=== PATIENT | female | born 1990 | race Caucasian/White ===

== ENCOUNTER 2017-05-10 10:58 | Emergency (ER) | payer SELFPAY ==
[~2017-05-10] VITALS: Ht 160 cm; Wt 95.3 kg
[~2017-05-10 10:58] MED LIST: CPR500T PO; FAMO-119 PO; HYDR-3714 PO; HYDR-700 PO; MTR500T PO; ONDA4TAB8 PO; ONDA8TAB13 PO; PROM25TA14 PO; SULF-222 PO; TRAM-21 PO
[2017-05-10] MEDS ORDERED: HYDROcodone/APAP 7.5 MG/325 MG (LORTAB, LORCET PLUS) TABLET PO STA (13:03)
[2017-05-10] MEDS ORDERED: ORPHENADRINE 60 MG/2 ML (NORFLEX) AMP IM STA (13:03)
[2017-05-10] MEDS ORDERED: KETOROLAC 60 MG/2 ML VIAL IM STA (13:03)
--- NOTE | 2017-05-10 13:04 | ED Neck-Back Pain/Injury ---
General Chief Complaint: Head/Cervical Problems Stated Complaint: BACK OF HEAD PRESSURE/NECK AND BACK PAIN Nursing Triage Note: PT C/O NECK AND UPPER BACK PAIN AND POSTERIOR HEAD PRESSURE WITH WORSENING OVER THE LAST WEEK. SHE DENIES ANY INJURY. SHE STATES APPROX 1 WEEK AGO SHE "POPPED" HER NECK AND SHE HAS HAD THIS PAIN EVER SINCE. Nursing Sepsis Screen: No Definite Risk Source of Information: Patient Exam Limitations: No Limitations History of Present Illness Time Seen by Provider: 12:50 Initial Comments Here with report of bilateral neck pain with pain radiating from the base of the skull down the shoulders bilaterally. Onset one week ago. Over-the- counter medicines aren't helping. Denies fever or chills. Denies vomiting Timing/Duration: 1 Week Severity: Moderate Pain/Injury Location: Neck Modifying Factors: Worse With Movement, Improves With Pain Medication Associated Symptoms: muscle spasms, No weakness, No numbness in legs/feet, No tingling in legs/feet, No sensory/motor loss, No lower back pain Allergies and Home Medications Allergies Coded Allergies: Penicillins (Verified Allergy, Unknown, 04/19/14) talc (Verified Allergy, Unknown, 04/19/14) Home Medications Famotidine 20 Mg Tablet, 20 MG PO BID, #20 Ref 0 Prescribed by: SHANELL JOHNSON on 04/11/16 1658 Ondansetron 8 Mg Tab.rapdis, 8 MG PO Q6H PRN for NAUSEA, #10 Ref 0 Prescribed by: SHANELL JOHNSON on 04/11/16 1658 Promethazine HCl 25 Mg Tablet, 25 MG PO Q6H PRN for NAUSEA/VOMITING, #14 Ref 0 Prescribed by: SHANELL JOHNSON on 04/11/16 1658 Constitutional: see HPI, No chills, No fever Respiratory: no symptoms reported Cardiovascular: no symptoms reported Musculoskeletal: see HPI, muscle pain, muscle cramps, neck pain Psychiatric/Neurological: No Symptoms Reported Past Bkgqiwq-Zjxltx-Wseswl Hx Patient Social History Alcohol Use: Denies Use Recreational Drug Use: Yes Drug of Choice: MARIJUANA Smoking Status: Current Everyday Smoker Type Used: Cigarettes 2nd Hand Smoke Exposure: Yes Recent Foreign Travel: No Contact w/Someone Who Travel: No Recent Infectious Disease Expo: No Recent Hopitalizations: No Immunizations Up To Date Tetanus Booster (TDap): Less than 5yrs Seasonal Allergies Seasonal Allergies: Yes Surgeries HX Surgeries: Yes (r ankle) Surgeries: Orthopedic Respiratory Hx Respiratory Disorders: Yes Respiratory Disorders: Asthma Cardiovascular Hx Cardiac Disorders: No Neurological Hx Neurological Disorders: No Reproductive System Hx Reproductive Disorders: Yes (PCOS) Female Reproductive Disorders: Denies, Polycystic Ovarian Dis Genitourinary Hx Genitourinary Disorders: No Gastrointestinal Hx Gastrointestinal Disorders: No Musculoskeletal Hx Musculoskeletal Disorders: No Endocrine Hx Endocrine Disorders: No HEENT HX ENT Disorders: No Cancer Hx Cancer: No Psychosocial Hx Psychiatric Problems: Yes Behavioral Health Disorders: Anxiety Integumentary HX Skin/Integumentary Disorder: Yes Skin/Integumentary Disorders: Psoriasis Blood Transfusions Hx Blood Disorders: No Reviewed Nursing Assessment Reviewed/Agree w Nursing PMH: Yes Family Medical History Significant Family History: No Pertinent Family Hx Physical Exam Vital Signs Vital Sign - Last 12Hours 05/10/17 11:50 Temp 97.9 Pulse 76 Resp 20 B/P (MAP) 145/101 Pulse Ox 97 O2 Delivery Room Air Capillary Refill : Less Than 3 Seconds General Appearance: No Apparent Distress, WD/WN Neck: Limited Range of Motion (pain to the lateral aspect of the muscles.), Tender Lateral (bilaterally), Other (pain at the bases: Bilateral neck muscle insertion points.) Cardiovascular: Regular Rate, Rhythm, No Murmur Respiratory: Lungs Clear, Normal Breath Sounds Gastrointestinal: Non Tender, Soft Back: Normal Inspection, No CVA Tenderness, No Vertebral Tenderness Neurologic/Psychiatric: Alert, Oriented x3 Skin: Normal Color, Warm/Dry Progress/Results/Core Measures Results/Orders My Orders Orders - DONNA WELCH MD Hydrocodone/Apap 7.5/325 Tab (Lortab 7. (05/10/17 13:03) Ketorolac Injection (Toradol Injection) (05/10/17 13:03) Orphenadrine Injection (Norflex Injectio (05/10/17 13:03) Vital Signs/I&O Vital Sign - Last 12Hours 05/10/17 11:50 Temp 97.9 Pulse 76 Resp 20 B/P (MAP) 145/101 Pulse Ox 97 O2 Delivery Room Air Blood Pressure Mean: 116 Progress Note : Progress Note Seen and evaluated. Toradol 60 mg IM, Norflex 60 mg IM and hydrocodone 7.5 mg by mouth given. Discharged home with return precautions. Patient verbalize understanding instructions and agreement with plan. Departure Impression Impression: Primary Impression: Neck sprain Qualified Codes: S13.9XXA - Sprain of joints and ligaments of unspecified parts of neck, initial encounter Additional Impression: Tension type headache Qualified Codes: G44.209 - Tension-type headache, unspecified, not intractable Disposition: 01 HOME, SELF-CARE Condition: Improved Departure-Patient Inst. Decision time for Depature: 13:41 Referrals: NO,LOCAL PHYSICIAN (PCP/Family) Primary Care Physician Patient Instructions: Tension Headache (DC), Cervical Muscle Strain (DC) Add. Discharge Instructions: All discharge instructions reviewed with patient and/or family. Voiced understanding. You may take ibuprofen 800 mg every 8 hours as needed for pain. Take other medications as prescribed. Drink plenty of fluids. Follow-up with your Dr. in a few days for recheck. Return for worse pain, fever, vomiting, weakness, breathing problems or other concerns as needed. Scripts Hydrocodone/Acetaminophen (Hydrocodon -Acetaminophen 5-325) 1 Each Tablet 1-2 EACH PO Q6H Y for PAIN-MODERATE, #10 TAB 0 Refills Prov: DONNA WELCH MD 05/10/17 Cyclobenzaprine HCl (Cyclobenzaprine HCl) 10 Mg Tablet 10 MG PO Q8H Y for SPASMS, #15 TAB 0 Refills Prov: DONNA WELCH MD 05/10/17 DONNA WELCH MD May 10, 2017 13:04
[2017-05-10] MEDS ORDERED: CYCL10TA9 PO (13:43)
[2017-05-10] MEDS ORDERED: HYDR-3812 PO (13:43)
[2017-05-10 13:49] VITALS: BP 145/101
== END 2017-05-10 13:49 | disposition home or self-care (01) ==
LOC: EDUNIT# 10:58 → ER 11:00
DX: S13.9XXA Sprain of joints and ligaments of unspecified parts of neck, initial encounter (principal); G44.209 Tension-type headache, unspecified, not intractable; J45.909 Unspecified asthma, uncomplicated; F41.9 Anxiety disorder, unspecified; F12.10 Cannabis abuse, uncomplicated; F17.210 Nicotine dependence, cigarettes, uncomplicated; X50.0XXA Overexertion from strenuous movement or load, initial encounter
CPT/HCPCS: 96372; 99282; 99284

== ENCOUNTER 2017-11-05 08:04 | Emergency (ER) | payer SELFPAY ==
[~2017-11-05] VITALS: Ht 162.6 cm; Wt 90.7 kg
[~2017-11-05 08:04] MED LIST changes: +ACHD5005 PO; +CYCL10TA9 PO
--- NOTE | 2017-11-05 09:36 | ED Cough/URI ---
General Chief Complaint: Cough/Cold/Flu Symptoms Stated Complaint: FLU LIKE SYMPTOMS,COUGH Nursing Triage Note: pt states cough/congestion since first september. has not seen anyone prior to today fro s/s or taken medications. Source: patient Exam Limitations: no limitations History of Present Illness Date Seen by Provider: Nov 05, 2017 Time Seen by Provider: 09:33 Initial Comments The patient is a 27-year-old white female who presents with a complaint of cough , body aches, hoarseness and sore throat. She reports that these complaints began on and have continued. There are days when she has a minimum of symptoms only to seem to relapse. For the past several days she has had hoarseness and an extremely sore throat. Symptoms have been great enough that she has not smoked this week. Severity/Quality: dry cough Allergies and Home Medications Allergies Coded Allergies: Penicillins (Verified Allergy, Unknown, 04/19/14) talc (Verified Allergy, Unknown, 04/19/14) Home Medications Cyclobenzaprine HCl 10 Mg Tablet, 10 MG PO Q8H PRN for SPASMS, #15 Ref 0 Prescribed by: DONNA WELCH on 05/10/17 1343 Famotidine 20 Mg Tablet, 20 MG PO BID, #20 Ref 0 Prescribed by: SHANELL JOHNSON on 04/11/16 1658 Hydrocodone Bit/Acetaminophen 1 Each Tablet, 1-2 EACH PO Q6H PRN for PAIN- MODERATE, #10 Ref 0 Prescribed by: DONNA WELCH on 05/10/17 1343 Ondansetron 8 Mg Tab.rapdis, 8 MG PO Q6H PRN for NAUSEA, #10 Ref 0 Prescribed by: SHANELL JOHNSON on 04/11/16 1658 Promethazine HCl 25 Mg Tablet, 25 MG PO Q6H PRN for NAUSEA/VOMITING, #14 Ref 0 Prescribed by: SHANELL JOHNSON on 04/11/16 1658 Constitutional: see HPI EENTM: throat pain, throat swelling Respiratory: cough, dyspnea on exertion Cardiovascular: no symptoms reported Gastrointestinal: no symptoms reported Genitourinary: no symptoms reported Musculoskeletal: muscle pain Skin: no symptoms reported Psychiatric/Neurological: No Symptoms Reported Hematologic/Lymphatic: No Symptoms Reported Past Jdddmlf-Qcwpwo-Zkyzov Hx Patient Social History Alcohol Use: Denies Use Recreational Drug Use: Yes Drug of Choice: MARIJUANA Smoking Status: Current Everyday Smoker Type Used: Cigarettes 2nd Hand Smoke Exposure: Yes Recent Foreign Travel: No Contact w/Someone Who Travel: No Recent Infectious Disease Expo: No Recent Hopitalizations: No Physical Abuse: No Sexual Abuse: No Mistreated: No Fear: No Immunizations Up To Date Tetanus Booster (TDap): Less than 5yrs Seasonal Allergies Seasonal Allergies: Yes Surgeries History of Surgeries: Yes (r ankle) Surgeries: Orthopedic Respiratory History of Respiratory Disorde: Yes Respiratory Disorders: Asthma Cardiovascular History of Cardiac Disorders: No Neurological History of Neurological Disord: No Reproductive System Hx Reproductive Disorders: Yes (PCOS) Female Reproductive Disorders: Denies, Polycystic Ovarian Dis Gastrointestinal History of Gastrointestinal Di: No Musculoskeletal History of Musculoskeletal Dis: No Endocrine History of Endocrine Disorders: No Cancer History of Cancer: No Psychosocial History of Psychiatric Problem: Yes Behavioral Health Disorders: Anxiety Suicide Risk Score: 0 Integumentary History of Skin or Integumenta: Yes Skin/Integumentary Disorders: Psoriasis Blood Transfusions History of Blood Disorders: No Family Medical History Significant Family History: No Pertinent Family Hx Physical Exam Vital Signs Vital Signs - First Documented 11/05/17 08:20 Temp 96.7 Pulse 88 Resp 20 B/P (MAP) 146/99 (115) Capillary Refill : Less Than 3 Seconds General Appearance: mild distress Eyes: Bilateral Eye Normal Inspection HEENT: normal ENT inspection, pharynx normal Neck: non-tender, full range of motion, supple, normal inspection Respiratory: chest non-tender, lungs clear, normal breath sounds, no respiratory distress, no accessory muscle use, respiratory distress, other ( Harsh cough) Cardiovascular: normal peripheral pulses, regular rate, rhythm, no edema, no gallop, no JVD, no murmur Extremities: normal range of motion, non-tender, normal inspection, no pedal edema, no calf tenderness, normal capillary refill, pelvis stable Neurologic/Psychiatric: 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, no motor/sensory deficits, alert, normal mood/affect, oriented x 3 Skin: normal color, warm/dry Lymphatic: no adenopathy Progress/Results/Core Measures Suspected Sepsis Recent Fever Within 48 Hours: No Infection Criteria Present: Suspected New Infection New/Unexplained Altered Menta: No Sepsis Screen: No Definite Risk Sepsis Diagnosis: SIRS Temperature:96.7 Pulse: 88 Respiratory Rate: 20 Laboratory Tests 11/05/17 09:33: White Blood Count 9.8 Blood Pressure 146 /99 Mean: 115 Laboratory Tests 11/05/17 09:33: Platelet Count 207 Results/Orders Lab Results Laboratory Tests Test 11/05/17 09:33 11/05/17 09:42 Range/Units White Blood Count 9.8 4.3-11.0 10^3/uL Red Blood Count 4.80 4.35-5.85 10^6/uL Hemoglobin 15.2 11.5-16.0 G/DL Hematocrit 44 35-52 % Mean Corpuscular Volume 91 80-99 FL Mean Corpuscular Hemoglobin 32 25-34 PG Mean Corpuscular Hemoglobin Concent 35 32-36 G/DL Red Cell Distribution Width 12.7 10.0-14.5 % Platelet Count 207 130-400 10^3/uL Mean Platelet Volume 10.3 7.4-10.4 FL Neutrophils (%) (Auto) 74 42-75 % Lymphocytes (%) (Auto) 11 L 12-44 % Monocytes (%) (Auto) 12 0-12 % Eosinophils (%) (Auto) 3 0-10 % Basophils (%) (Auto) 0 0-10 % Neutrophils # (Auto) 7.2 1.8-7.8 X 10^3 Lymphocytes # (Auto) 1.1 1.0-4.0 X 10^3 Monocytes # (Auto) 1.2 H 0.0-1.0 X 10^3 Eosinophils # (Auto) 0.3 0.0-0.3 10^3/uL Basophils # (Auto) 0.0 0.0-0.1 10^3/uL Group A Streptococcus Screen NEGATIVE NEGATIVE Micro Results Microbiology 11/05/17 Influenza Types A,B Antigen (YESENIA) - Final, Complete My Orders Orders - GABY MILLS MD Cbc With Automated Diff (11/05/17 08:32) Influenza A And B Antigens (11/05/17 08:32) Rapid Strep A Screen (11/05/17 09:41) Vital Signs/I&O Vital Sign - Last 12Hours 11/05/17 08:20 Temp 96.7 Pulse 88 Resp 20 B/P (MAP) 146/99 (115) Capillary Refill : Less Than 3 Seconds Blood Pressure Mean: 115 Departure Communication (Admissions) Progress Notes Labs shows her to be strep negative, influenza a positive. Impression Impression: Primary Impression: influenza A Disposition: HOME, SELF-CARE Condition: Stable/Unchanged Departure-Patient Inst. Decision time for Depature: 10:28 Referrals: NO,LOCAL PHYSICIAN (PCP) Primary Care Physician Patient Instructions: Flu, Adult (DC) Add. Discharge Instructions: All discharge instructions reviewed with patient and/or family. Voiced understanding. Lots of liquids. Throat lozenges will be useful. BLESSEDLY YOU should be coming to the end of your illness. GABY MILLS MD Nov 05, 2017 09:36
[2017-11-05 09:40] LABS: BASOPHILS % (AUTO) 0 % (0-10); EOSINOPHILS # (AUTO) 0.3 10^3/uL (0.0-0.3); EOSINOPHILS % (AUTO) 3 % (0-10); HEMATOCRIT 44 % (35-52); HEMOGLOBIN 15.2 G/DL (11.5-16.0); LYMPHOCYTES # (AUTO) 1.1 X 10^3 (1.0-4.0); LYMPHOCYTES % (AUTO) 11 % (12-44); MEAN CORPUSCULAR HEMOGLOBIN 32 PG (25-34); MEAN CORPUSCULAR HGB CONC 35 G/DL (32-36); MEAN CORPUSCULAR VOLUME 91 FL (80-99); MEAN PLATELET VOLUME 10.3 FL (7.4-10.4); MONOCYTES # (AUTO) 1.2 X 10^3 (0.0-1.0); MONOCYTES % (AUTO) 12 % (0-12); NEUTROPHILS # (AUTO) 7.2 X 10^3 (1.8-7.8); NEUTROPHILS % (AUTO) 74 % (42-75); PLATELET COUNT 207 10^3/uL (130-400); RED CELL DISTRIBUTION WIDTH 12.7 % (10.0-14.5); WHITE BLOOD COUNT 9.8 10^3/uL (4.3-11.0)
[2017-11-05 10:42] VITALS: BP 146/99
== END 2017-11-05 10:42 | disposition home or self-care (01) ==
LOC: EDUNIT# 08:04 → ER 08:05
DX: J10.1 Influenza due to other identified influenza virus with other respiratory manifestations (principal); J45.909 Unspecified asthma, uncomplicated; F41.9 Anxiety disorder, unspecified; F12.10 Cannabis abuse, uncomplicated; F17.210 Nicotine dependence, cigarettes, uncomplicated; Z88.0 Allergy status to penicillin; Z88.3 Allergy status to other anti-infective agents; Z87.448 Personal history of other diseases of urinary system
CPT/HCPCS: 36415; 85025; 87430; 87804; 99282

== ENCOUNTER 2018-01-12 08:14 | Emergency (ER) | payer SELFPAY ==
[~2018-01-12] VITALS: Ht 165.1 cm; Wt 90.7 kg
[2018-01-12] MEDS ORDERED: VIT (08:50)
[2018-01-12] MEDS ORDERED: KETOROLAC 30 MG/ML VIAL IM ONE (09:15)
--- NOTE | 2018-01-12 10:26 | Diagnostic Imaging Report ---
PROCEDURE: US right lower extremity venous. TECHNIQUE: Multiple real-time grayscale images were obtained over the right lower extremity in various projections. Additional duplex Doppler and color Doppler images were also obtained. INDICATION: Right leg pain. COMPARISON: None. FINDINGS: The right common femoral vein, femoral vein, deep femoral vein, and popliteal vein are normal in appearance. These vessels show normal compressibility, color flow and doppler augmentation. The visualized deep calf veins demonstrate no distinct intraluminal thrombus. IMPRESSION: 1. No sonographic evidence of deep venous thrombosis in the right lower extremity. Dictated by: Dictated on workstation # [id number]
--- NOTE | 2018-01-12 11:38 | ED Fall/Injury ---
General Chief Complaint: Lower Extremity Stated Complaint: FELL ON RIGHT KNEE Nursing Triage Note: TO ROOM REPORTS TRIPPED AND FELL OVER CURVE YESTERDAY. PAIN IN R KNEE WITH ABRASION Source: patient Exam Limitations: no limitations History of Present Illness Date Seen by Provider: Jan 12, 2018 Time Seen by Provider: 08:58 Initial Comments This 27-year-old woman presents to the emergency room with injury to the right knee after having a fall at a local convenience store. The injury happened last night. She struck her knee on the concrete and has mild abrasions, swelling, and bruising to the knee and gonzalez. She also complains of pain in the posterior calf with extension of the foot. She is ambulatory and able to bear weight. She complains of significant pain in the gonzalez with plantar flexion of the foot. She has been taking only Tylenol for the pain because ibuprofen causes acid reflux for her. Allergies and Home Medications Allergies Coded Allergies: Penicillins (Verified Allergy, Unknown, 04/19/14) talc (Verified Allergy, Unknown, 04/19/14) Patient Home Medication List Home Medication List Reviewed: Yes Review of Systems Constitutional: no symptoms reported Eyes: No Symptoms Reported Ears, Nose, Mouth, Throat: no symptoms reported Respiratory: no symptoms reported Cardiovascular: no symptoms reported Gastrointestinal: no symptoms reported Genitourinary: no symptoms reported : No Musculoskeletal: see HPI Skin: see HPI Psychiatric/Neurological: No Symptoms Reported Past Ujlyrag-Dmnsss-Ihncxx Hx Patient Social History Alcohol Use: Denies Use Recreational Drug Use: Yes Drug of Choice: MARIJUANA Smoking Status: Current Everyday Smoker Type Used: Cigarettes 2nd Hand Smoke Exposure: Yes Recent Foreign Travel: No Contact w/Someone Who Travel: No Recent Infectious Disease Expo: No Recent Hopitalizations: No Immunizations Up To Date Tetanus Booster (TDap): Less than 5yrs Seasonal Allergies Seasonal Allergies: Yes Past Medical History Surgeries: Yes (r ankle) Orthopedic Respiratory: Yes Asthma Cardiac: No Neurological: No Reproductive Disorders: Yes (PCOS) Female Reproductive Disorders: Denies, Polycystic Ovarian Dis Genitourinary: No Gastrointestinal: No Musculoskeletal: No Endocrine: No Cancer: No Psychosocial: Yes Anxiety Integumentary: Yes Psoriasis Blood Disorders: No Family Medical History No Pertinent Family Hx Physical Exam Vital Signs Vital Signs - First Documented 01/12/18 01/12/18 08:32 11:41 Temp 97.6 Pulse 76 Resp 18 B/P (MAP) 125/92 (103) Pulse Ox 98 Capillary Refill : Less Than 3 Seconds General Appearance: WD/WN, mild distress HEENT: normal ENT inspection Respiratory: normal breath sounds, no respiratory distress Extremities: other (right knee demonstrates edema and ecchymosis. Affected areas are tender to the touch. Posterior Is also tender to the touch. She also complains of tenderness over the proximal anterior gonzalez. Range of motion is intact. 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 nml as tested, no motor/sensory deficits, alert, normal mood/affect, oriented x 3 Skin: other (chronic skin changes on the lower extremities from psoriasis, abrasion and ecchymosis to the right knee) Progress/Results/Core Measures My Orders Orders - DORIS MERCER MD Ketorolac Injection (Toradol Injection) (01/12/18 09:15) Tibia/Fibula, Right, 2 Views (01/12/18 09:06) Knee, Right, 3 Views (01/12/18 09:06) Us Venous Lower Ext Rt (01/12/18 09:07) Medications Given in ED Current Medications Medications Dose Ordered Sig/Blaise Route Start Time Stop Time Status Last Admin Dose Admin Ketorolac Tromethamine 30 mg ONCE ONCE IM 01/12/18 09:15 01/12/18 09:16 DC 01/12/18 09:10 30 MG Vital Signs/I&O 01/12/18 01/12/18 08:32 11:41 Temp 97.6 Pulse 76 76 Resp 18 18 B/P (MAP) 125/92 (103) 125/92 (103) Pulse Ox 98 Blood Pressure Mean: 103 Progress Note : Progress Note Toradol was administered for pain control. X-rays revealed no acute injury. Ultrasound was performed due to the calf pain. No DVT was identified. Diagonstic Imaging: Ultrasound Plain Films/CT/US/NM/MRI: leg Comments NAME: FREDDIE BOCANEGRA Radha [facility] REC#: [id number] PT STATUS: REG ER : 1990 PHYSICIAN: DORIS MERCER MD ADMIT DATE: 01/12/18/ER Signed Date of Exam: 01/12/18 US VENOUS LOWER EXT RT PROCEDURE: US right lower extremity venous. TECHNIQUE: Multiple real-time grayscale images were obtained over the right lower extremity in various projections. Additional duplex Doppler and color Doppler images were also obtained. INDICATION: Right leg pain. COMPARISON: None. FINDINGS: The right common femoral vein, femoral vein, deep femoral vein, and popliteal vein are normal in appearance. These vessels show normal compressibility, color flow and doppler augmentation. The visualized deep calf veins demonstrate no distinct intraluminal thrombus. IMPRESSION: 1. No sonographic evidence of deep venous thrombosis in the right lower extremity. Dictated by: Dictated on workstation # [id number] Dict: 01/12/18 1021 Trans: 01/12/18 1107 Interpreted by: JESUS RAVI MD Electronically signed by: JESUS RAVI MD 01/12/18 1107 Reviewed: Reviewed by Me Diagonstic Imaging: Xray Plain Films/CT/US/NM/MRI: leg, knee Comments X-rays of the right knee and tib-fib were viewed by me and discussed with the radiologist. Reports were not available. No acute injuries were identified. Departure Impression Primary Impression: Fall on same level from tripping as cause of accidental injury Additional Impressions: Knee contusion Qualified Codes: S80.01XA - Contusion of right knee, initial encounter Leg pain Qualified Codes: M79.604 - Pain in right leg Disposition: 01 HOME, SELF-CARE Condition: Improved Departure-Patient Inst. Decision time for Depature: 11:20 Referrals: NO,LOCAL PHYSICIAN (PCP/Family) Primary Care Physician Patient Instructions: Contusion (DC) Add. Discharge Instructions: You may treat pain with rest, icing in 20 minute intervals, elevation, and compressive wrapping with an Bashir wrap if desired. You may take ibuprofen up to 600 mg every 6 hours as needed for pain. Add Tylenol (acetaminophen) up to 1000 mg every 6 hours as needed for additional pain relief. To prevent stomach upset with ibuprofen, take with food or milk and take an over -the-counter antacid such as omeprazole or famotidine while using ibuprofen. Discontinue use of ibuprofen if you still have notable stomach upset or acid reflux. If not improving as expected over the next couple of days, please follow-up with your primary care provider. Call your doctor or return to the emergency room if symptoms are worsening. All discharge instructions reviewed with patient and/or family. Voiced understanding. Work/School Note: Work Release Form Date Seen in the Emergency Department: Jan 12, 2018 Return to Work: Jan 13, 2018 Other Restrictions Listed Below: No lifting > 20 lbs, excessive bending, or other strenuous activity x 1 wk DORIS MERCER MD Jan 12, 2018 11:38
[2018-01-12 11:41] VITALS: BP 125/92
--- NOTE | 2018-01-14 16:46 | RADIOLOGY REPORT ---
Patient name: FREDDIE BOCANEGRA ACC: [id number] : 1990 Age:27 years Gender: Female ORD DR: DORIS MERCER MD Phone: ATT DR: DORIS MERCER MD Phone: Procedure: TIBIA/FIBULA, RIGHT, 2 VIEWS ORD Date: 01/12/2018 10:01 AM Reason for Study: CORRECTED Final Report INDICATION: Fall with bruising and lacerations of the right knee and anterior tibia, with pain radiating distal to the knee. TECHNIQUE: 2 views of the right tibia/fibula. COMPARISON: None FINDINGS: No acute fracture or dislocation is seen in the right knee or the right tibia/ fibula. Alignment appears normal. The joint spaces are generally preserved. No significant joint effusion is seen. Small densities are seen anterior to the tibial diaphysis and superior to the patella, thought to represent soft tissue calcifications. There is mild soft tissue edema anterior to the tibia. IMPRESSION: 1. No acute osseous abnormality is seen in the right knee or right tibia/fibula. 2. Small densities superior to the patella and anterior to the tibia are thought to be soft tissue calcifications, however given the history of lacerations, please correlate clinically to exclude foreign body or overlying debris. Dictated by: Created by: Shamir Donovan on 01/12/2018 10:03 AM Transcribed by: MIKIE 01/12/2018 10:10 AM SRIKANTH
--- NOTE | 2018-01-14 16:49 | RADIOLOGY REPORT ---
Patient name: FREDDIE BOCANEGRA ACC: [id number] : 1990 Age:27 years Gender: Female ORD DR: DORIS MERCER MD Phone: ATT DR: DORIS MERCER MD Phone: Procedure: KNEE, RIGHT, 3 VIEWS ORD Date: 01/12/2018 10:01 AM Reason for Study: CORRECTED Final Report INDICATION: Fall with bruising and lacerations of the right knee and anterior tibia, with pain radiating distal to the knee. TECHNIQUE: 3 views of the right knee. 2 views of the right tibia/fibula. COMPARISON: None FINDINGS: No acute fracture or dislocation is seen in the right knee or the right tibia/ fibula. Alignment appears normal. The joint spaces are generally preserved. No significant joint effusion is seen. Small densities are seen anterior to the tibial diaphysis and superior to the patella, thought to represent soft tissue calcifications. There is mild soft tissue edema anterior to the tibia. IMPRESSION: 1. No acute osseous abnormality is seen in the right knee or right tibia/fibula. 2. Small densities superior to the patella and anterior to the tibia are thought to be soft tissue calcifications, however given the history of lacerations, please correlate clinically to exclude foreign body or overlying debris. Dictated by: Created by: Shamir Donovan on 01/12/2018 10:03 AM Transcribed by: MIKIE 01/12/2018 10:10 AM SRIKANTH
== END 2018-01-12 11:42 | disposition home or self-care (01) ==
LOC: EDUNIT# 08:14 → ER 08:16
DX: S80.01XA Contusion of right knee, initial encounter (principal); M79.604 Pain in right leg; J45.909 Unspecified asthma, uncomplicated; F41.9 Anxiety disorder, unspecified; F12.10 Cannabis abuse, uncomplicated; F17.210 Nicotine dependence, cigarettes, uncomplicated; Z88.0 Allergy status to penicillin; Z91.048 Other nonmedicinal substance allergy status; Z87.448 Personal history of other diseases of urinary system; W18.30XA Fall on same level, unspecified, initial encounter; Y92.512 Supermarket, store or market as the place of occurrence of the external cause
CPT/HCPCS: 73562; 73590; 96372

== ENCOUNTER 2018-08-25 06:53 | Emergency (ER) | payer SELFPAY ==
[~2018-08-25] VITALS: Ht 165.1 cm; Wt 86.2 kg
[~2018-08-25 06:53] MED LIST changes: +VIT
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
[2018-08-25] MEDS ORDERED: RT-ALBUTEROL/IPRATROPIUM 3 ML (DUONEB) VIAL INH ONE (07:15)
[2018-08-25] MEDS ORDERED: KETOROLAC 30 MG/ML VIAL IVP ONE (07:15)
[2018-08-25] MEDS ORDERED: hydrOXYzine (VISTARIL) 25 MG CAP PO ONE (07:15)
--- NOTE | 2018-08-25 07:33 | Diagnostic Imaging Report ---
CHEST PA/LAT (2 VIEW) Indication: Anxiety attack. Shortness of breath. Comparison: 12/11/2015 Findings: No focal pneumonic consolidation, pleural effusion or pneumothorax. Normal heart size and pulmonary vasculature. Impression: No acute cardiopulmonary process. Dictated by: Dictated on workstation # [id number]
[2018-08-25] MEDS ORDERED: RT-ALBUTEROL SULF 2.5 MG/3 ML PRE-MIX VIAL ONE (07:44)
[2018-08-25] MEDS ORDERED: RT-ALBUTEROL SULF 2.5 MG/3 ML PRE-MIX VIAL INH STA (07:45)
[2018-08-25] MEDS ORDERED: RT-ALBUINH INH (08:04)
[2018-08-25 08:09] VITALS: BP 130/74
== END 2018-08-25 08:09 | disposition home or self-care (01) ==
LOC: EDUNIT# 06:53 → ER 06:54
DX: F41.0 Panic disorder [episodic paroxysmal anxiety] (principal); F43.9 Reaction to severe stress, unspecified; R07.89 Other chest pain; J45.909 Unspecified asthma, uncomplicated; F12.10 Cannabis abuse, uncomplicated; F17.210 Nicotine dependence, cigarettes, uncomplicated; Z87.448 Personal history of other diseases of urinary system; Z88.0 Allergy status to penicillin
CPT/HCPCS: 71046; 94640

== ENCOUNTER 2019-01-27 09:12 | Emergency (ER) | payer SELFPAY ==
[~2019-01-27] VITALS: Ht 165.1 cm; Wt 90.7 kg
[~2019-01-27 09:12] MED LIST changes: +RT-ALBUINH INH
[2019-01-27] MEDS ORDERED: RT-ALBUTEROL/IPRATROPIUM 3 ML (DUONEB) VIAL ONE (11:00)
[2019-01-27] MEDS ORDERED: PROMETHAZINE/ CODEINE SYRUP 5 ML UDC PO ONE (11:00)
[2019-01-27] MEDS ORDERED: RT-ALBUTEROL/IPRATROPIUM 3 ML (DUONEB) VIAL INH ONE (11:15)
--- NOTE | 2019-01-27 11:19 | ED Cough/URI ---
General Chief Complaint: Cough/Cold/Flu Symptoms Stated Complaint: COUGH,SORE THROAT Source: patient Exam Limitations: no limitations History of Present Illness Date Seen by Provider: January 27, 2019 Time Seen by Provider: 10:46 Initial Comments 28-year-old female who presents to the emergency room with complaints of cough, sore throat, wheezing for the past 2 weeks. She reports she has history of asthma but her inhalers are no longer working. She reports that she no longer has a primary care provider since she lost her insurance. She reports that she does have the means to a for her prescriptions. She denies fevers. Timing/Duration: just prior to arrival Associated Symptoms: cough, wheezing Allergies and Home Medications Allergies Coded Allergies: Penicillins (Verified Allergy, Unknown, 04/19/14) talc (Verified Allergy, Unknown, 04/19/14) Home Medications Albuterol Sulfate 1 Puff Puff, 2 PUFF INH Q4H 1 PUFF = 90 MCG Prescribed by: BEAN RESENDIZ on 08/25/18 0804 Azithromycin 250 Mg Tablet, 250 MG PO UD TAKE 2 TABLETS ON DAY ONE THEN TAKE 1 TABLET DAILY FOR FOUR MORE DAYS Prescribed by: ANICETO LARSEN on 01/27/19 1132 Prednisone 20 Mg Tab, 40 MG PO DAILY Prescribed by: ANICETO LARSEN on 01/27/19 1132 Promethazine/Dextromethorphan 473 Ml Syrup, 5 ML PO Q4H PRN for COUGH Prescribed by: ANICETO LARSEN on 01/27/19 1132 Patient Home Medication List Home Medication List Reviewed: Yes Review of Systems Review of Systems Constitutional: see HPI; No chills, No fever EENTM: see HPI, throat pain Respiratory: see HPI, cough, wheezing All Other Systems Reviewed Negative Unless Noted: Yes Past Wljnjjv-Ipnmpx-Rxypry Hx Past Med/Social Hx: Reviewed Nursing Past Med/Soc Hx Patient Social History Drug of Choice: MARIJUANA Type Used: Cigarettes 2nd Hand Smoke Exposure: Yes Recent Hopitalizations: No Immunizations Up To Date Tetanus Booster (TDap): Less than 5yrs Seasonal Allergies Seasonal Allergies: Yes Past Medical History Surgeries: Yes (r ankle) Orthopedic Respiratory: Yes Asthma Cardiac: No Neurological: No Reproductive Disorders: Yes (PCOS) Female Reproductive Disorders: Denies, Polycystic Ovarian Dis Genitourinary: No Gastrointestinal: No Musculoskeletal: No Endocrine: No Cancer: No Psychosocial: Yes Anxiety Integumentary: Yes Psoriasis Blood Disorders: No Family Medical History Reviewed Nursing Family Hx No Pertinent Family Hx Physical Exam Vital Signs - First Documented 01/27/19 10:54 Temp 98.5 Pulse 95 Resp 22 B/P (MAP) 125/96 (106) Pulse Ox 99 O2 Delivery Room Air Capillary Refill : Height: 5'5.00" Weight: 190lbs. oz. 86.304717be; 35.42 BMI Method:Stated General Appearance: WD/WN, no apparent distress Eyes: Bilateral Eye Normal Inspection, Bilateral Eye PERRL, Bilateral Eye EOMI HEENT: PERRL/EOMI, normal ENT inspection, TMs normal, pharynx normal Respiratory: chest non-tender, no respiratory distress, no accessory muscle use , wheezing (faint wheezes throughout lung yen.) Cardiovascular: normal peripheral pulses, regular rate, rhythm, no edema, no gallop, no JVD, no murmur Extremities: normal capillary refill Neurologic/Psychiatric: alert, normal mood/affect, oriented x 3 Skin: normal color, warm/dry Progress/Results/Core Measures Suspected Sepsis SIRS Temperature: Pulse: Respiratory Rate: Blood Pressure / Mean: Results/Orders Lab Results Laboratory Tests Test 01/27/19 11:00 Range/Units Group A Streptococcus Screen NEGATIVE NEGATIVE Micro Results Microbiology 01/27/19 Influenza Types A,B Antigen (YESENIA) - Final, Complete My Orders Orders - ANICETO LARSEN Influenza A And B Antigens (01/27/19 10:55) Rapid Strep A Screen (01/27/19 10:55) Promethazine/ Codeine Syrup (Phenergan W (01/27/19 11:00) Albuterol/Ipra Inhalation Soln (Duoneb I (01/27/19 11:15) Svn Small Volume Nebulizer (01/27/19 11:02) Albuterol/Ipra Inhalation Soln (Duoneb I (01/27/19 11:00) Chest Pa/Lat (2 View) (01/27/19 11:05) Medications Given in ED Current Medications Medications Dose Ordered Sig/Blaise Route Start Time Stop Time Status Last Admin Dose Admin Albuterol/ Ipratropium 3 ml STK-MED ONCE .ROUTE 01/27/19 11:00 01/27/19 11:04 DC 01/27/19 11:09 3 ML Promethazine HCl/ Codeine 5 ml ONCE ONCE PO 01/27/19 11:00 01/27/19 11:01 DC 01/27/19 11:08 5 ML Vital Signs/I&O 01/27/19 10:54 Temp 98.5 Pulse 95 Resp 22 B/P (MAP) 125/96 (106) Pulse Ox 99 O2 Delivery Room Air Capillary Refill : Progress Note : Time: 11:20 Progress Note The patient's wheezing has resolved after DuoNeb nebulized treatment. She reports that she is feeling better after breathing treatment. She still has persistent cough. 1133: I have seen and evaluated patient. She is feeling better at this time. Her coughing has improved with medication. She agrees with plan of care, plans for discharge, return precautions were given. Diagnostic Imaging Diagonstic Imaging: Xray Plain Films/CT/US/NM/MRI: chest Comments NAME: FREDDIE BOCANEGRA [facility] REC#: [id number] PT STATUS: REG ER : 1990 PHYSICIAN: ANICETO LARSEN ADMIT DATE: 01/27/19/ER Signed Date of Exam: 01/27/19 CHEST PA/LAT (2 VIEW) Indication: Lower respiratory infection PA and lateral chest Heart size and pulmonary vascular normal. Lungs are clear. There are no effusions or pneumothoraces. Impression: Negative chest Dictated by: Dictated on workstation # [id number] Dict: 01/27/19 1126 Trans: 01/27/19 1126 Interpreted by: DONNA TOBIAS MD Electronically signed by: DONNA TOBIAS MD 01/27/19 1126 Reviewed: Reviewed by Me Departure Impression Primary Impression: Bronchitis Disposition: 01 HOME, SELF-CARE Condition: Stable/Unchanged Departure-Patient Inst. Decision time for Depature: 11:29 Referrals: NO,LOCAL PHYSICIAN (PCP/Family) Primary Care Physician Patient Instructions: Bronchiolitis (DC) Add. Discharge Instructions: Take medications as directed. Continue to use your inhaler as previously prescribed. Follow-up with the primary care provider of your choosing within 1 week for recheck. Return back to the emergency room for worsening symptoms or concerns as needed. All discharge instructions reviewed with patient and/or family. Voiced understanding. Scripts Promethazine/Dextromethorphan (Promethazine-Dm Syrup) 473 Ml Syrup 5 ML PO Q4H PRN for COUGH, #60 ML Prov: ANICETO LARSEN 01/27/19 Prednisone (Prednisone) 20 Mg Tab 40 MG PO DAILY for 5 Days, #10 TAB 0 Refills Prov: ANICETO LARSEN 01/27/19 Azithromycin (Azithromycin) 250 Mg Tablet 250 MG PO UD, #6 TAB TAKE 2 TABLETS ON DAY ONE THEN TAKE 1 TABLET DAILY FOR FOUR MORE DAYS Prov: ANICETO LARSEN 01/27/19 ANICETO LARSEN January 27, 2019 11:19
--- NOTE | 2019-01-27 11:28 | Diagnostic Imaging Report ---
Indication: Lower respiratory infection PA and lateral chest Heart size and pulmonary vascular normal. Lungs are clear. There are no effusions or pneumothoraces. Impression: Negative chest Dictated by: Dictated on workstation # [id number]
[2019-01-27] MEDS ORDERED: PRD20T PO (11:32)
[2019-01-27] MEDS ORDERED: D-ME473S38 PO (11:32)
[2019-01-27] MEDS ORDERED: AZIT250T12 PO (11:32)
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
[2019-01-27 11:45] VITALS: BP 142/85
== END 2019-01-27 11:46 | disposition home or self-care (01) ==
LOC: EDUNIT# 09:12 → ER 09:13
DX: J40 Bronchitis, not specified as acute or chronic (principal); J45.909 Unspecified asthma, uncomplicated; F41.9 Anxiety disorder, unspecified; Z88.0 Allergy status to penicillin; Z79.52 Long term (current) use of systemic steroids; Z77.22 Contact with and (suspected) exposure to environmental tobacco smoke (acute) (chronic); Z87.448 Personal history of other diseases of urinary system
CPT/HCPCS: 71046; 87430; 87804

== ENCOUNTER 2019-05-13 16:23 | Emergency (ER) | payer SELFPAY ==
[~2019-05-13] VITALS: Ht 165.1 cm; Wt 90.7 kg
[~2019-05-13 16:23] MED LIST changes: +AZIT250T12 PO; +D-ME473S38 PO; +PRD20T PO
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
[2019-05-13 17:05] VITALS: BP 153/132
== END 2019-05-13 17:05 | disposition home or self-care (01) ==
LOC: EDUNIT# 16:23 → ER 16:24
DX: S61.216A Laceration without foreign body of right little finger without damage to nail, initial encounter (principal); J45.909 Unspecified asthma, uncomplicated; F41.9 Anxiety disorder, unspecified; Z77.22 Contact with and (suspected) exposure to environmental tobacco smoke (acute) (chronic); Z88.0 Allergy status to penicillin; W26.0XXA Contact with knife, initial encounter; Y92.009 Unspecified place in unspecified non-institutional (private) residence as the place of occurrence of the external cause
CPT/HCPCS: 99282

== ENCOUNTER 2019-06-10 07:14 | Inpatient (IN) | payer SELFPAY ==
[~2019-06-10] VITALS: Ht 165 cm; Wt 75.1 kg
[2019-06-10 07:39] LABS: CLARITY,URINE MUCOUS; COLOR,URINE AMBER; GLUCOSE, URINE (UA) NEGATIVE (NEGATIVE); KETONES,URINE 1+ (NEGATIVE); LEUKOCYTE ESTERASE ,URINE 3+ (NEGATIVE); NITRITE,URINE POSITIVE (NEGATIVE); PH,URINE 6 (5-9); PROTEIN,URINE 2+ (NEGATIVE); UROBILINOGEN,URINE 8 MG/DL (NORMAL)
[2019-06-10] MEDS ORDERED: LACTATED RINGERS 1,000 ML IV ONE (07:42)
[2019-06-10] MEDS ORDERED: ONDANSETRON 4 MG/2 ML (SDV) Z0FRAN IVP ONE (07:45)
[2019-06-10 07:48] LABS: BASOPHILS % (AUTO) 0 % (0-10); EOSINOPHILS % (AUTO) 0 % (0-10); HEMATOCRIT 41 % (35-52); LYMPHOCYTES # (AUTO) 0.6 X 10^3 (1.0-4.0); LYMPHOCYTES % (AUTO) 3 % (12-44); MEAN CORPUSCULAR HEMOGLOBIN 30 PG (25-34); MEAN CORPUSCULAR HGB CONC 34 G/DL (32-36); MEAN CORPUSCULAR VOLUME 88 FL (80-99); MEAN PLATELET VOLUME 10.1 FL (7.4-10.4); MONOCYTES % (AUTO) 5 % (0-12); NEUTROPHILS # (AUTO) 19.9 X 10^3 (1.8-7.8); NEUTROPHILS % (AUTO) 92 % (42-75); PLATELET COUNT 252 10^3/uL (130-400); RED CELL DISTRIBUTION WIDTH 13.1 % (10.0-14.5); WHITE BLOOD COUNT 21.6 10^3/uL (4.3-11.0)
--- NOTE | 2019-06-10 07:55 | ED Abdominal Pain ---
General Chief Complaint: Abdominal/GI Problems Stated Complaint: LOWER ABD PAIN Source of Information: Patient History of Present Illness Date Seen by Provider: Jun 10, 2019 Time Seen by Provider: 07:20 Initial Comments PT ARRIVES VIA POV FROM HOME C/O LOWER ABDOMINAL PAIN FOR AT LEAST 2 WEEKS, WORSE FOR THE LAST COUPLE OF DAYS STATES "ALOT OF PRESSURE IN MY UTERUS" LMP BEGAN 2 WEEKS AGO AND FINISHED YESTERDAY, NORMALLY LASTS 3 DAYS. NO CONTROL. HAS NAUSEA/VOMITING/DIARRHEA X 2 WEEKS--"1 OR 2 TIMES EVERY HOUR" OF BOTH VOMITING AND DIARRHEA STATES SHE "CANT' KEEP ANYTHING DOWN" --HAD APPLESAUCE AT 0200 AND IS DRINKING WATER ON ARRIVAL. NO PROBLEMS URINATING AND IS VOIDING A NORMAL AMOUNT BEGAN RUNNING FEVER YESTERDAY--STATES IT WAS 103 AT WORK, AND WAS SENT HOME FROM WORK HAS NOT TAKEN ANYTHING FOR SYMPTOMS AT ANY TIME SYMPTOMS NO DIFFERENT TODAY HAS NOT SOUGHT CARE AT ANY TIME FOR THIS NO HISTORY OF SIMILAR STATES SHE "CAN'T EAT, CAN'T DRINK, CAN'T SLEEP, CAN'T SIT, CAN'T LAY DOWN, CAN'T DO ANYTHING" STATES PAIN IS "IN MY RIB CAGE AND BELOW MY BELLY BUTTON" NO SICK CONTACTS OR SUSPICIOUS FOODS PCP: [facility] Allergies and Home Medications Allergies Coded Allergies: Penicillins (Verified Allergy, Unknown, 04/19/14) talc (Verified Allergy, Unknown, 04/19/14) Home Medications Albuterol Sulfate 1 Puff Puff, 2 PUFF INH Q4H 1 PUFF = 90 MCG Prescribed by: BEAN RESENDIZ on 08/25/18 0804 Azithromycin 250 Mg Tablet, 250 MG PO UD TAKE 2 TABLETS ON DAY ONE THEN TAKE 1 TABLET DAILY FOR FOUR MORE DAYS Prescribed by: ANICETO LARSEN on 01/27/19 113 Prednisone 20 Mg Tab, 40 MG PO DAILY Prescribed by: ANICETO LARSEN on 01/27/19 1132 Promethazine/Dextromethorphan 473 Ml Syrup, 5 ML PO Q4H PRN for COUGH Prescribed by: ANICETO LARSEN on 01/27/19 1132 Review of Systems Review of Systems Constitutional: see HPI, fever EENTM: No Symptoms Reported Respiratory: No Symptoms Reported Cardiovascular: No Symptoms Reported Gastrointestinal: See HPI, Abdominal Pain, Diarrhea, Nausea, Vomiting Genitourinary: See HPI; Denies Flank Pain, Denies Incontinence, Denies Pain, Denies Urgency Musculoskeletal: no symptoms reported Skin: no symptoms reported Psychiatric/Neurological: Anxiety Endocrine: No Symptoms Reported Hematologic/Lymphatic: No Symptoms Reported Past Cotnlax-Cjdhzd-Weywrl Hx Patient Social History Alcohol Use: Occasionally Uses Recreational Drug Use: Yes (THC) Drug of Choice: THC Smoking Status: Current Everyday Smoker (1 PPD) Type Used: Cigarettes (1 PPD) 2nd Hand Smoke Exposure: Yes Recent Foreign Travel: No Contact w/Someone Who Travel: No Recent Hopitalizations: No Immunizations Up To Date Tetanus Booster (TDap): Unknown PED Vaccines UTD: Yes Seasonal Allergies Seasonal Allergies: Yes Past Medical History Surgeries: Yes (RIGHT ANKLE FX/ORIF) Orthopedic Respiratory: Yes Asthma Cardiac: No Neurological: No Reproductive Disorders: Yes (PCOS) Female Reproductive Disorders: Polycystic Ovarian Dis Genitourinary: No Gastrointestinal: No Musculoskeletal: No Endocrine: No HEENT: No Cancer: No Psychosocial: Yes Anxiety Integumentary: Yes Psoriasis Blood Disorders: No Family Medical History No Pertinent Family Hx Physical Exam Vital Signs Capillary Refill : Height/Weight/BMI Height: 5'5.00" Weight: 200lbs. oz. 90.870771dd; 35.42 BMI Method:Actual General Appearance: other (VERY DRAMATIC, LAYING AND SITTING ON FLOOR ON KNEES, HARSH/FORCED GAGGING AND SPITTING/THROWING UP CLEAR MUCOUS; FULL/ HEAVY MAKE UP INCLUDING LIPSTICK ) Respiratory: normal breath sounds, no respiratory distress, no accessory muscle use Cardiovascular: regular rate, rhythm, no murmur Gastrointestinal: normal bowel sounds, soft; No distended; guarding (ENTIRE ABDOMEN); No rebound; tenderness (DIFFUSE TENDERNESS, MOST TENDER IN SUPRAPUBIC AND LLQ AREAS); No hernia, No mass Extremities: normal inspection, normal capillary refill Back: normal inspection, CVA tenderness (R), CVA tenderness (L) 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, no motor/sensory deficits, alert, oriented x 3, other (ANXIOUS) Skin: normal color, tattoos/piercings (EXTENSIVE TATTOOS) Focused Exam Lactate Level 06/10/19 08:15: Lactic Acid Level 1.42 Lactic Acid Level Laboratory Tests Test 06/10/19 08:15 Lactic Acid Level 1.42 MMOL/L (0.50-2.00) Progress/Results/Core Measures Results/Orders Lab Results Laboratory Tests Test 06/10/19 07:20 06/10/19 07:40 06/10/19 08:15 Range/Units Urine Color FRANCISCO H Urine Clarity MUCOUS Urine pH 6 5-9 Urine Specific Christmas 1.020 1.016-1.022 Urine Protein 2+ H NEGATIVE Urine Glucose (UA) NEGATIVE NEGATIVE Urine Ketones 1+ H NEGATIVE Urine Nitrite POSITIVE H NEGATIVE Urine Bilirubin 1+ H NEGATIVE Urine Urobilinogen 8 H NORMAL MG/DL Urine Leukocyte Esterase 3+ H NEGATIVE Urine RBC (Auto) 5+ H NEGATIVE Urine RBC 25-50 H /HPF Urine WBC 50-100 H /HPF Urine Squamous Epithelial Cells 5-10 /HPF Urine Crystals PRESENT H /LPF Urine Amorphous Sediment LARGE JACKIE URATES H /LPF Urine Bacteria MODERATE H /HPF Urine Casts NONE /LPF Urine Mucus NEGATIVE /LPF Urine Culture Indicated YES Urine Opiates Screen NEGATIVE NEGATIVE Urine Oxycodone Screen NEGATIVE NEGATIVE Urine Methadone Screen NEGATIVE NEGATIVE Urine Propoxyphene Screen NEGATIVE NEGATIVE Urine Barbiturates Screen NEGATIVE NEGATIVE Ur Tricyclic Antidepressants Screen NEGATIVE NEGATIVE Urine Phencyclidine Screen NEGATIVE NEGATIVE Urine Amphetamines Screen NEGATIVE NEGATIVE Urine Methamphetamines Screen NEGATIVE NEGATIVE Urine Benzodiazepines Screen NEGATIVE NEGATIVE Urine Cocaine Screen NEGATIVE NEGATIVE Urine Cannabinoids Screen POSITIVE H NEGATIVE White Blood Count 21.6 H 4.3-11.0 10^3/uL Red Blood Count 4.69 4.35-5.85 10^6/uL Hemoglobin 14.0 11.5-16.0 G/DL Hematocrit 41 35-52 % Mean Corpuscular Volume 88 80-99 FL Mean Corpuscular Hemoglobin 30 25-34 PG Mean Corpuscular Hemoglobin Concent 34 32-36 G/DL Red Cell Distribution Width 13.1 10.0-14.5 % Platelet Count 252 130-400 10^3/uL Mean Platelet Volume 10.1 7.4-10.4 FL Neutrophils (%) (Auto) 92 H 42-75 % Lymphocytes (%) (Auto) 3 L 12-44 % Monocytes (%) (Auto) 5 0-12 % Eosinophils (%) (Auto) 0 0-10 % Basophils (%) (Auto) 0 0-10 % Neutrophils # (Auto) 19.9 H 1.8-7.8 X 10^3 Lymphocytes # (Auto) 0.6 L 1.0-4.0 X 10^3 Monocytes # (Auto) 1.0 0.0-1.0 X 10^3 Eosinophils # (Auto) 0.0 0.0-0.3 10^3/uL Basophils # (Auto) 0.0 0.0-0.1 10^3/uL Neutrophils % (Manual) 77 % Lymphocytes % (Manual) 3 % Monocytes % (Manual) 4 % Band Neutrophils 16 % Blood Morphology Comment NORMAL Sodium Level 135 135-145 MMOL/L Potassium Level 3.7 3.6-5.0 MMOL/L Chloride Level 103 98-107 MMOL/L Carbon Dioxide Level 19 L 21-32 MMOL/L Anion Gap 13 5-14 MMOL/L Blood Urea Nitrogen 8 7-18 MG/DL Creatinine 0.86 0.60-1.30 MG/DL Estimat Glomerular Filtration Rate > 60 BUN/Creatinine Ratio 9 Glucose Level 139 H 70-105 MG/DL Calcium Level 9.6 8.5-10.1 MG/DL Corrected Calcium 9.4 8.5-10.1 MG/DL Magnesium Level 1.5 L 1.6-2.4 MG/DL Total Bilirubin 1.7 H 0.1-1.0 MG/DL Aspartate Amino Transf (AST/SGOT) 18 5-34 U/L Alanine Aminotransferase (ALT/SGPT) 19 0-55 U/L Alkaline Phosphatase 86 40-136 U/L Total Protein 7.8 6.4-8.2 GM/DL Albumin 4.3 3.2-4.5 GM/DL Amylase Level 34 25-125 U/L Lipase 10 8-78 U/L Serum Alcohol < 10 <10 MG/DL Lactic Acid Level 1.42 0.50-2.00 MMOL/L My Orders Orders - DANI SAMS DO Urine Bedside (06/10/19 07:25) Ua Culture If Indicated (06/10/19 07:25) Ed Iv/Invasive Line Start (06/10/19 07:42) Amylase (06/10/19 07:42) Cbc With Automated Diff (06/10/19 07:42) Comprehensive Metabolic Panel (06/10/19 07:42) Lipase (06/10/19 07:42) Magnesium (06/10/19 07:42) Ed Iv/Invasive Line Start (06/10/19 07:42) Lactated Ringers (Lr 1000 Ml Iv Solution (06/10/19 07:42) Ondansetron Injection (Zofran Injectio (06/10/19 07:45) Lactic Acid Analyzer (06/10/19 07:43) Blood Culture (06/10/19 07:43) Manual Differential (06/10/19 07:40) Alcohol (06/10/19 07:53) Drug Screen Stat (Urine) (06/10/19 07:53) Urine Culture (06/10/19 07:20) Ketorolac Injection (Toradol Injection) (06/10/19 08:30) Ct Abd/Pelv W (Appendicitis) (06/10/19 08:17) Acute Abd Series (06/10/19 08:17) Ceftriaxone For Iv Use (Rocephin For I (06/10/19 08:30) Iohexol Injection (Omnipaque 350 Mg/Ml 1 (06/10/19 08:30) Received Contrast (Hold Metformin- Contr (06/10/19 08:30) Ns (Ivpb) (Sodium Chloride 0.9% Ivpb Bag (06/10/19 08:30) Acetaminophen Tablet (Tylenol Tablet) (06/10/19 09:45) Medications Given in ED Current Medications Medications Dose Ordered Sig/Blaise Route Start Time Stop Time Status Last Admin Dose Admin Ceftriaxone Sodium 1000 mg/ Sterile Water 10 ml @ 200 mls/hr ONCE ONCE IV 06/10/19 08:30 06/10/19 08:49 DC 06/10/19 09:15 200 MLS/HR Iohexol 100 ml ONCE ONCE IV 06/10/19 08:30 06/10/19 08:50 DC 06/10/19 08:54 100 ML Ketorolac Tromethamine 30 mg ONCE ONCE IVP 06/10/19 08:30 06/10/19 08:49 DC 06/10/19 09:15 30 MG Lactated Ringer's 1,000 ml @ 0 mls/hr Q0M ONCE IV 06/10/19 07:42 06/10/19 07:43 DC 06/10/19 08:05 1,000 MLS/HR Ondansetron HCl 4 mg ONCE ONCE IVP 06/10/19 07:45 06/10/19 07:46 DC 06/10/19 08:06 4 MG Sodium Chloride 100 ml ONCE ONCE IV 06/10/19 08:30 06/10/19 08:50 DC 06/10/19 08:54 80 ML Progress Progress Note : Progress Note PAIN AND NAUSEA IMPROVED WITH MEDICATIONS NO DETERIORATION IN PT'S CONDITION DURING ER STAY Diagnostic Imaging Comments ABDOMEN XRAYS--NO ACUTE PROCESS CT ABDOMEN/PELVIS--NON-SPECIFIC FLUID FILLED LOOPS OF BOWEL, NO ACUTE PROCESS PER RADIOLOGIST REPORTS AT 0928 Reviewed: Reviewed by Me Departure Communication (Admissions) 0932--SPOKE WITH DR. QUIGLEY, ACCEPTS PT FOR ADMIT Impression Primary Impression: Sepsis Additional Impressions: UTI (urinary tract infection) Nausea vomiting and diarrhea Disposition: ADMITTED INPATIENT Condition: Improved Departure-Patient Inst. Referrals: NO,LOCAL PHYSICIAN (PCP/Family) Primary Care Physician DANI SAMS DO Jun 10, 2019 07:55
[2019-06-10 07:57] LABS: AMORPHOUS SEDIMENT,UR LARGE AMOR URATES /LPF; BACTERIA,URINE MODERATE /HPF; BILIRUBIN,URINE 1+ (NEGATIVE); RBC,URINE 25-50 /HPF; WBC,URINE 50-100 /HPF
[2019-06-10 08:07] LABS: ALANINE AMINOTRANSFERASE 19 U/L (0-55); ALBUMIN 4.3 GM/DL (3.2-4.5); ALKALINE PHOSPHATASE 86 U/L (40-136); AMYLASE 34 U/L (25-125); BILIRUBIN,TOTAL 1.7 MG/DL (0.1-1.0); BUN/CREATININE RATIO 9; CALCIUM 9.6 MG/DL (8.5-10.1); CARBON DIOXIDE 19 MMOL/L (21-32); CHLORIDE 103 MMOL/L (98-107); CREATININE SERUM 0.86 MG/DL (0.60-1.30); GFR ESTIMATED > 60; GLUCOSE 139 MG/DL (70-105); LIPASE 10 U/L (8-78); MAGNESIUM 1.5 MG/DL (1.6-2.4); POTASSIUM 3.7 MMOL/L (3.6-5.0); SODIUM 135 MMOL/L (135-145); TOTAL PROTEIN 7.8 GM/DL (6.4-8.2)
[2019-06-10 08:16] LABS: BAND NEUTROPHILS 16 %; LYMPHOCYTES % (MANUAL) 3 %; MONOCYTES % (MANUAL) 4 %; NEUTROPHILS % (MANUAL) 77 %; RBC MORPH NORMAL
[2019-06-10] MEDS ORDERED: KETOROLAC 30 MG/ML VIAL IVP ONE (08:30)
[2019-06-10] MEDS ORDERED: HOLD METFORMIN - RECEIVED CONTRAST 20 ML VIAL IV SCH (08:30)
[2019-06-10] MEDS ORDERED: IOHEXOL 350 MG/ML 100 ML (OMNIPAQUE 350) VIAL IV ONE (08:30)
[2019-06-10] MEDS ORDERED: cefTRIAXone FOR IV USE 1,000 MG in WATER (STERILE) FOR INJECTION 10 ML IV ONE (08:30)
[2019-06-10] MEDS ORDERED: NS 100 ML (IVPB) BAG IV ONE (08:30)
[2019-06-10 09:08] LABS: AMPHETAMINE SCREEN, URINE NEGATIVE (NEGATIVE); BARBITURATE SCREEN URINE NEGATIVE (NEGATIVE); BENZODIAZEPINES SCREEN URINE NEGATIVE (NEGATIVE); CANNABINOID SCREEN, URINE POSITIVE (NEGATIVE); COCAINE SCREEN URINE NEGATIVE (NEGATIVE); METHADONE STAT NEGATIVE (NEGATIVE); METHAMPHETAMINE SCREEN URINE S NEGATIVE (NEGATIVE); OPIATE SCREEN URINE NEGATIVE (NEGATIVE); OXYCODONE STAT NEGATIVE (NEGATIVE); PROPOXYPHENE STAT NEGATIVE (NEGATIVE); TRICYCLIC ANTIDEPRESSANTS SCRE NEGATIVE (NEGATIVE)
--- NOTE | 2019-06-10 09:14 | Diagnostic Imaging Report ---
PROCEDURE: CT abdomen and pelvis with contrast, rule out appendicitis. TECHNIQUE: Multiple contiguous axial images were obtained through the abdomen and pelvis after the administration of intravenous contrast. INDICATION: Abdominal pain for 2 weeks and fever. Correlation is made with prior CT from 04/11/2016. The lung bases are clear. No discrete liver mass is identified. The gallbladder is unremarkable. No biliary duct dilatation is seen. The pancreas and spleen are unremarkable. No adrenal mass is detected. Kidneys are without evidence of hydronephrosis. Small and large bowel loops are nondilated. There are some fluid-filled small and large bowel loops, nonspecific. Appendix is visualized and unremarkable. No free fluid or fluid collection is seen. The bladder, uterus and ovaries are unremarkable. Bony structures and nonacute. IMPRESSION: 1. No CT evidence of acute appendicitis. There are some mildly prominent fluid filled small and large bowel loops, nonspecific but could be owing to nonspecific enteritis. Study is otherwise unremarkable. Dictated by: Dictated on workstation # [id number]
--- NOTE | 2019-06-10 09:15 | Diagnostic Imaging Report ---
Patient History: Abdominal pain. Nausea and vomiting. Fever. Technique: 4 views of the chest and abdomen are obtained. Comparison: 01/27/2019 FINDINGS: The lung volumes are normal. No focal consolidation is seen. No large pleural effusion or pneumothorax is seen. The cardiomediastinal silhouette is normal in size and contour. No acute osseous abnormality is seen. Normal appearance of the collecting systems and bladder seen. No evidence of hydronephrosis. The bowel gas pattern is nondistended. No large collection of free intraperitoneal air is seen. Scattered small amounts of gas and fecal material are present in the colon. No abnormal extraosseous calcifications are present. The osseous structures are age-appropriate. IMPRESSION: 1. No acute pleuroparenchymal process. 2. No evidence of bowel obstruction or large collections of free intraperitoneal air. 3. No evidence of hydronephrosis bilaterally. Dictated by: Dictated on workstation # [id number]
[2019-06-10] MEDS ORDERED: ACETAMINOPHEN 500 MG TAB (TYLENOL) PO ONE (09:45)
[2019-06-10 10:39] VITALS: BP 116/75
--- NOTE | 2019-06-10 10:51 | NUR ---
FREDDIE BOCANEGRA admitted to room 424-1, with an admitting diagnosis of UTI, on 06/10/19 from ED via wheelchair, accompanied by staff. FREDDIE BOCANEGRA introduced to surroundings, call light, bed controls, phone, TV, temperature control, lights, meal times, smoking policy, visitor policy, side rail policy, bathrooms and showers. Patient Rights given to patient in the handbook. FREDDIE BOCANEGRA verbalizes understanding that [facility] is not responsible for the loss or damage to any personal effects or valuables that are kept in the patients possession during their hospitalization. The following Patient Care Plans were discussed with the patient: Discharge Planning, pain management,medications, and dehydration. FREDDIE BOCANEGRA verbalizes understanding of Interdisciplinary Patient Education. Patient and/or family were informed about the Rapid Response Team and its purpose.
[2019-06-10] MEDS ORDERED: ACETAMINOPHEN 500 MG TAB (TYLENOL) PO PRN (11:30)
[2019-06-10] MEDS: D5 1/2 NS W/KCL 20 MEQ/L 1,000 ML IV SCH ×2 (11:36→21:47)
[2019-06-10 12:00] VITALS: BP 123/78
--- NOTE | 2019-06-10 12:34 | History & Physical ---
HPI History of Present Illness: 29 yo F that presented to ER with abdominal pain and found to have severe UTI. Patient states that she has been feeling bad for the last 2 weeks. + Fevers and chills. States that she has been having alot of pain when she urinates but has not seen a doctor. Last UTI was last year. Denies any recent hospitalization. Denies taking any medications. States that she has been diagnosed with PCOS in the past. Source: patient Exam Limitations: no limitations Date seen by provider: Jun 10, 2019 Time Seen by Provider: 12:30 Attending Physician Melissa Hickman MD PCP Center/Se,[facility] Consult Date of Admission Jun 10, 2019 at 09:47 Home Medications Home Medications Reviewed patient Home Medication Reconciliation performed by pharmacy medication reconciliations software validation technician and/or nursing. Patients Allergies have been reviewed. Allergies Coded Allergies: Penicillins (Verified Allergy, Unknown, 04/19/14) talc (Verified Allergy, Unknown, 04/19/14) [id number]-[id number] Hx Patient Social History Alcohol Use: Occasionally Uses Recreational Drug Use: Yes (THC) Drug of Choice: THC Smoking Status: Current Everyday Smoker (1 PPD) Type Used: Cigarettes (1 PPD) 2nd Hand Smoke Exposure: Yes Recent Foreign Travel: No Contact w/other who traveled: No Recent Hopitalizations: No Recent Infectious Disease Expo: No Immunizations Up To Date Tetanus Booster (TDap): Unknown Past Medical History PCOS Family Medical History Significant Family History: No Pertinent Family Hx Review of Systems (CHC) Constitutional: chills, fever, malaise EENTM: no symptoms reported; No mouth pain, No mouth swelling, No nose congestion, No nose pain, No throat pain, No throat swelling Respiratory: cough Cardiovascular: no symptoms reported; No chest pain, No edema, No palpitations Gastrointestinal: abdominal pain (umbilical), loss of appetite, nausea Genitourinary: dysuria, frequency; No hematuria : No Musculoskeletal: back pain Skin: no symptoms reported; No lesions, No rash Psychiatric/Neurological: No Symptoms Reported Reviewed Test Results Reviewed Test Results Lab Laboratory Tests Test 06/10/19 07:20 06/10/19 07:40 06/10/19 08:15 Range/Units Urine Color FRANCISCO H Urine Clarity MUCOUS Urine pH 6 5-9 Urine Specific Offerman 1.020 1.016-1.022 Urine Protein 2+ H NEGATIVE Urine Glucose (UA) NEGATIVE NEGATIVE Urine Ketones 1+ H NEGATIVE Urine Nitrite POSITIVE H NEGATIVE Urine Bilirubin 1+ H NEGATIVE Urine Urobilinogen 8 H NORMAL MG/DL Urine Leukocyte Esterase 3+ H NEGATIVE Urine RBC (Auto) 5+ H NEGATIVE Urine RBC 25-50 H /HPF Urine WBC 50-100 H /HPF Urine Squamous Epithelial Cells 5-10 /HPF Urine Crystals PRESENT H /LPF Urine Amorphous Sediment LARGE JACKIE URATES H /LPF Urine Bacteria MODERATE H /HPF Urine Casts NONE /LPF Urine Mucus NEGATIVE /LPF Urine Culture Indicated YES Urine Opiates Screen NEGATIVE NEGATIVE Urine Oxycodone Screen NEGATIVE NEGATIVE Urine Methadone Screen NEGATIVE NEGATIVE Urine Propoxyphene Screen NEGATIVE NEGATIVE Urine Barbiturates Screen NEGATIVE NEGATIVE Ur Tricyclic Antidepressants Screen NEGATIVE NEGATIVE Urine Phencyclidine Screen NEGATIVE NEGATIVE Urine Amphetamines Screen NEGATIVE NEGATIVE Urine Methamphetamines Screen NEGATIVE NEGATIVE Urine Benzodiazepines Screen NEGATIVE NEGATIVE Urine Cocaine Screen NEGATIVE NEGATIVE Urine Cannabinoids Screen POSITIVE H NEGATIVE White Blood Count 21.6 H 4.3-11.0 10^3/uL Red Blood Count 4.69 4.35-5.85 10^6/uL Hemoglobin 14.0 11.5-16.0 G/DL Hematocrit 41 35-52 % Mean Corpuscular Volume 88 80-99 FL Mean Corpuscular Hemoglobin 30 25-34 PG Mean Corpuscular Hemoglobin Concent 34 32-36 G/DL Red Cell Distribution Width 13.1 10.0-14.5 % Platelet Count 252 130-400 10^3/uL Mean Platelet Volume 10.1 7.4-10.4 FL Neutrophils (%) (Auto) 92 H 42-75 % Lymphocytes (%) (Auto) 3 L 12-44 % Monocytes (%) (Auto) 5 0-12 % Eosinophils (%) (Auto) 0 0-10 % Basophils (%) (Auto) 0 0-10 % Neutrophils # (Auto) 19.9 H 1.8-7.8 X 10^3 Lymphocytes # (Auto) 0.6 L 1.0-4.0 X 10^3 Monocytes # (Auto) 1.0 0.0-1.0 X 10^3 Eosinophils # (Auto) 0.0 0.0-0.3 10^3/uL Basophils # (Auto) 0.0 0.0-0.1 10^3/uL Neutrophils % (Manual) 77 % Lymphocytes % (Manual) 3 % Monocytes % (Manual) 4 % Band Neutrophils 16 % Blood Morphology Comment NORMAL Sodium Level 135 135-145 MMOL/L Potassium Level 3.7 3.6-5.0 MMOL/L Chloride Level 103 98-107 MMOL/L Carbon Dioxide Level 19 L 21-32 MMOL/L Anion Gap 13 5-14 MMOL/L Blood Urea Nitrogen 8 7-18 MG/DL Creatinine 0.86 0.60-1.30 MG/DL Estimat Glomerular Filtration Rate > 60 BUN/Creatinine Ratio 9 Glucose Level 139 H 70-105 MG/DL Calcium Level 9.6 8.5-10.1 MG/DL Corrected Calcium 9.4 8.5-10.1 MG/DL Magnesium Level 1.5 L 1.6-2.4 MG/DL Total Bilirubin 1.7 H 0.1-1.0 MG/DL Aspartate Amino Transf (AST/SGOT) 18 5-34 U/L Alanine Aminotransferase (ALT/SGPT) 19 0-55 U/L Alkaline Phosphatase 86 40-136 U/L Total Protein 7.8 6.4-8.2 GM/DL Albumin 4.3 3.2-4.5 GM/DL Amylase Level 34 25-125 U/L Lipase 10 8-78 U/L Serum Alcohol < 10 <10 MG/DL Lactic Acid Level 1.42 0.50-2.00 MMOL/L Physical Exam-([facility]) Physical Exam Vital Signs VS - Last 72 Hours, by Label 06/10/19 06/10/19 06/10/19 07:20 10:39 10:45 Temp 38.4 36.7 Pulse 126 107 Resp 22 20 B/P (MAP) 144/88 (106) 116/75 Pulse Ox 99 95 O2 Delivery Room Air Room Air Room Air Capillary Refill : Less Than 3 Seconds General Appearance: mild distress (due to pain) HEENT: PERRL/EOMI Neck: non-tender, full range of motion, supple Respiratory: chest non-tender, normal breath sounds, no respiratory distress, no accessory muscle use Cardiovascular: normal peripheral pulses, regular rate, rhythm, no edema, no murmur Gastrointestinal: soft, guarding, tenderness (umbilical) Extremities: normal inspection, no pedal edema, no calf tenderness, normal capillary refill Neurologic/Psychiatric: alert, oriented x 3 Skin: normal color, warm/dry Lymphatic: no adenopathy Assessment/Plan Assessment/Plan Admission Status: Observation (1) Abdominal pain Status: Acute Assessment & Plan: - CT normal, toradol for pain control, US ordered Qualifiers: Qualified Codes: R10.33 - Periumbilical pain (2) UTI (urinary tract infection) Status: Acute Assessment & Plan: - Started on Rocephin, continue with IVF hydration, will continue to monitor leukocytosis Qualifiers: Qualified Codes: N30.01 - Acute cystitis with hematuria (3) Sepsis Status: Acute Qualifiers: Qualified Codes: A41.9 - Sepsis, unspecified organism (4) DVT prophylaxis Status: Acute Assessment & Plan: - SCDs Clinical Quality Measures DVT/VTE Risk/Contraindication: Risk Factor Score Per Nursin RFS Level Per Nursing on Admit: 2=Moderate MELISSA HICKMAN MD Jun 10, 2019 12:34
--- NOTE | 2019-06-10 12:57 | NUR ---
PATIENT STATES SHE IS NOT CURRENTLY TAKING ANY MEDICATIONS. SHE HAS HAD AN ALBUTEROL INHALER IN THE PAST HOWEVER DUE TO NOT HAVING INSURANCE CAN NOT AFFORD IT. SHE DOES NOT HAVE ON AVAILABLE TO HER AT THIS TIME.
--- NOTE | 2019-06-10 14:09 | Diagnostic Imaging Report ---
PROCEDURE: US abdomen complete. TECHNIQUE: Multiple real-time grayscale images were obtained over the abdomen in various projections. INDICATION: Periumbilical abdominal pain and leukocytosis. FINDINGS: The liver is normal in size at 15.8 cm. No discrete liver mass is identified. The portal vein is patent and shows normal direction of flow. Gallbladder is without stones or sludge. No wall thickening or biliary ductal dilatation is seen. The spleen is normal in size at 12.5 cm. Pancreas has a normal appearance. Aorta is nonaneurysmal. IVC is patent. Kidneys are without evidence of calculi or hydronephrosis. There is no free fluid. There are some dilated bowel loops throughout the abdomen. IMPRESSION: Unremarkable abdominal ultrasound apart from mild fluid-filled bowel loops. No other abnormality is seen. Dictated by: Dictated on workstation # [id number]
[2019-06-10 16:00] VITALS: BP 104/65
[2019-06-10 20:00] VITALS: BP 103/72
[2019-06-10] MEDS: ONDANSETRON 4 MG/2 ML (SDV) Z0FRAN IV PRN (20:00)
[2019-06-10] MEDS: KETOROLAC 30 MG/ML VIAL IV PRN (20:00)
[2019-06-11] VITALS: BP 100/68
[2019-06-11] MEDS: D5 1/2 NS W/KCL 20 MEQ/L 1,000 ML IV SCH ×5 (01:00→21:39)
[2019-06-11 03:26] VITALS: BP 86/59
[2019-06-11] MEDS: KETOROLAC 30 MG/ML VIAL IV PRN ×3 (04:44→16:42)
[2019-06-11 07:41] LABS: BASOPHILS % (AUTO) 0 % (0-10); EOSINOPHILS # (AUTO) 0.2 10^3/uL (0.0-0.3); EOSINOPHILS % (AUTO) 1 % (0-10); HEMATOCRIT 35 % (35-52); HEMOGLOBIN 11.2 G/DL (11.5-16.0); LYMPHOCYTES # (AUTO) 0.8 X 10^3 (1.0-4.0); LYMPHOCYTES % (AUTO) 5 % (12-44); MEAN CORPUSCULAR HEMOGLOBIN 29 PG (25-34); MEAN CORPUSCULAR HGB CONC 32 G/DL (32-36); MEAN CORPUSCULAR VOLUME 91 FL (80-99); MEAN PLATELET VOLUME 10.8 FL (7.4-10.4); MONOCYTES # (AUTO) 1.1 X 10^3 (0.0-1.0); MONOCYTES % (AUTO) 7 % (0-12); NEUTROPHILS # (AUTO) 14.5 X 10^3 (1.8-7.8); NEUTROPHILS % (AUTO) 88 % (42-75); PLATELET COUNT 191 10^3/uL (130-400); RED CELL DISTRIBUTION WIDTH 13.6 % (10.0-14.5); WHITE BLOOD COUNT 16.6 10^3/uL (4.3-11.0)
[2019-06-11 08:00] VITALS: BP 104/70
[2019-06-11 08:10] LABS: ALANINE AMINOTRANSFERASE 16 U/L (0-55); ALBUMIN 3.3 GM/DL (3.2-4.5); ALKALINE PHOSPHATASE 176 U/L (40-136); BILIRUBIN,TOTAL 1.3 MG/DL (0.1-1.0); BUN/CREATININE RATIO 20; CALCIUM 8.6 MG/DL (8.5-10.1); CARBON DIOXIDE 19 MMOL/L (21-32); CHLORIDE 109 MMOL/L (98-107); CREATININE SERUM 0.69 MG/DL (0.60-1.30); GFR ESTIMATED > 60; GLUCOSE 108 MG/DL (70-105); POTASSIUM 3.5 MMOL/L (3.6-5.0); SODIUM 138 MMOL/L (135-145); TOTAL PROTEIN 6.5 GM/DL (6.4-8.2)
[2019-06-11] MEDS: cefTRIAXone 1,000 MG/SWFI 10 ML IV PUSH IV SCH ×2 (08:31)
[2019-06-11] MEDS: ONDANSETRON 4 MG/2 ML (SDV) Z0FRAN IV PRN (08:31)
[2019-06-11] MEDS ORDERED: LORazepam INJ 2 MG/ML (ATIVAN) VIAL IVP STA ×3 (08:40→09:09)
[2019-06-11] MEDS ORDERED: LORazepam INJ 2 MG/ML (ATIVAN) VIAL ONE (08:55)
[2019-06-11 12:00] VITALS: BP 102/68
--- NOTE | 2019-06-11 14:54 | Progress Note - Hospitalist ---
Subjective HPI/CC On Admission Date Seen by Provider: Jun 11, 2019 Time Seen by Provider: 14:30 Subjective/Events-last exam Patient is tearful and complains of diarrhea and abdominal discomfort. In addition she complains of being hungry and wanting something to eat. We collected stools and have them down for C. difficile. She is afebrile her white count is going down. Review of Systems Gastrointestinal: Nausea, Abdominal Pain, Diarrhea Focused Exam Lactate Level 06/10/19 08:15: Lactic Acid Level 1.42 Objective Exam Vital Signs Vital Signs Date Time Temp Pulse Resp B/P (MAP) Pulse Ox O2 Delivery O2 Flow Rate FiO2 06/11/19 12:00 36.9 77 20 102/68 97 Room Air Capillary Refill : Less Than 3 Seconds General Appearance: Anxious HEENT: Normal ENT Inspection Respiratory: Lungs Clear, Normal Breath Sounds, No Accessory Muscle Use, No Respiratory Distress Cardiovascular: Regular Rate, Rhythm, No Gallop, No Murmur Gastrointestinal: Normal Bowel Sounds (bilateral lower quadrants), No Organomegaly, Soft, Tenderness Rectal: Deferred Back: Normal Inspection Extremity: Normal Capillary Refill, Non Tender Results/Procedures Lab Laboratory Tests 06/11/19 06:10 Patient resulted labs reviewed. Assessment/Plan Assessment and Plan Assess & Plan/Chief Complaint Abdominal pain with diarrhea illness cultures pending of the stool will start Levsin when necessary and advance diet as tolerated Long-term cannabis use may be a factor Clinical Quality Measures DVT/VTE Risk/Contraindication: Risk Factor Score Per Nursin RFS Level Per Nursing on Admit: 2=Moderate GERALD VALENZUELA MD Jun 11, 2019 14:54
[2019-06-11] MEDS ORDERED: HYOSCYAMINE 0.125 MG (LEVSIN) TAB PO PRN (15:00)
[2019-06-11 15:40] VITALS: BP 110/57
[2019-06-11 19:35] VITALS: BP 103/59
[2019-06-12] VITALS: BP 101/56
[2019-06-12 04:00] VITALS: BP 115/74
[2019-06-12] MEDS: D5 1/2 NS W/KCL 20 MEQ/L 1,000 ML IV SCH ×2 (04:21→11:14)
[2019-06-12] MEDS: KETOROLAC 30 MG/ML VIAL IV PRN (04:21)
[2019-06-12 07:30] VITALS: BP 112/71
[2019-06-12] MEDS: cefTRIAXone 1,000 MG/SWFI 10 ML IV PUSH IV SCH ×2 (08:59)
[2019-06-12 11:35] VITALS: BP 123/69
--- NOTE | 2019-06-12 13:11 | Discharge Instructions ---
Discharge Instructions Reconcile Patient Problems Problems Reviewed?: Yes Patient Instructions Patient Instructions Try and eat a low residue diet and use a heating pad as needed for abdominal cramping. Return to The Hospital For: Increased abdominal pain or fevers Activity & Diet Discharge Diet: Low Residue Activity as Tolerated: Yes Copy Copies To 1: [facility]/GERALD ZAMAN MD Jun 12, 2019 13:11
--- NOTE | 2019-06-12 13:20 | Discharge Summary ---
Discharge Summary Hospital Course Was the Problem List Reviewed?: Yes Problems/Dx: (1) Urinary tract infection Status: Acute (2) Enteritis Status: Resolved (3) Abdominal pain Status: Resolved Qualifiers: Qualified Codes: R10.33 - Periumbilical pain Hospital Course Date of Admission: Jun 10, 2019 at 09:47 Admission Diagnosis : Family Physician/Provider: Deleted Date of Discharge: 06/12/19 Discharge Diagnosis: [ ] Hospital Course: Patient was admitted with abdominal pain and urinary tract infection. She was placed on Rocephin. CT and abdominal sonogram were unrevealing except for fluid-filled loops of intestines. She did develop diarrhea which seemed to exacerbate her pain. Stool was negative for C. difficile. [ Culture showed greater than than 3 isolates. White count was elevated at the time of admission and was decreasing at the time of discharge. Because of the diarrhea the patient is not being discharged on antibiotic. She is been afebrile and her urinary symptoms have abated. She will follow-up with [facility] for a repeat UA and culture.] Labs and Pending Lab Test: Microbiology 06/10/19 Blood Culture - Preliminary, Resulted No growth 06/11/19 C. difficile [facility] Antigen & Toxins - Final, Resulted 06/11/19 Stool Culture, Resulted Pending 06/10/19 Urine Culture - Final, Complete 3 or more isolates Home Meds Active No Active Prescriptions or Reported Medications Assessment/Pt Instructions Urinary tract infection Diarrhea Abdominal pain secondary to number 1 and number 2 Discharge Planning: >30 minutes discharge planning Discharge Instructions Discharge Diet: Low Residue Activity as Tolerated: Yes Discharge Physical Examination Vital Signs Vital Signs Date Time Temp Pulse Resp B/P (MAP) Pulse Ox O2 Delivery O2 Flow Rate FiO2 06/12/19 11:35 36.2 79 20 123/69 99 Room Air General Appearance: No Apparent Distress, WD/WN HEENT: Normal ENT Inspection Respiratory: Lungs Clear, Normal Breath Sounds, No Accessory Muscle Use, No Respiratory Distress Cardiovascular: Regular Rate, Rhythm, No Gallop, No Murmur, Normal Peripheral Pulses Gastrointestinal: Normal Bowel Sounds, No Organomegaly, Non Tender, Soft Extremity: Normal Capillary Refill, Normal Range of Motion, No Calf Tenderness Skin: Normal Color, Warm/Dry Neurologic/Psychiatric: Alert, Oriented x3, No Motor/Sensory Deficits, Normal Mood/Affect, bilingual account manager II-XII Norm as Tested Allergies: Coded Allergies: Penicillins (Verified Allergy, Unknown, 04/19/14) talc (Verified Allergy, Unknown, 04/19/14) Copy Copies To 1: [facility] [place] Discharge Summary Date of Admission Jun 10, 2019 at 09:47 Date of Discharge Discharge Date: Jun 12, 2019 Discharge Time: 1300 Discharge Diagnosis Abdominal pain with diarrhea illness cultures pending of the stool will start Levsin when necessary and advance diet as tolerated Long-term cannabis use may be a factor Clinical Quality Measures DVT/VTE Risk/Contraindication: Risk Factor Score Per Nursin RFS Level Per Nursing on Admit: 2=Moderate GERALD VALENZUELA MD Jun 12, 2019 13:17
--- NOTE | 2019-06-20 14:17 | Physician Query Clarification ---
PQ-Conflicting Diagnosis Admission/Discharge Admission Date: Jun 10, 2019 at 09:47 Discharge Date: Jun 12, 2019 at 13:53 The medical record reflects the following clinical scenario: History/Risk Factors: Fever, elevated pulse Clinical Findings: UTI Treatment: IV antibiotics Question: Do you agree with the impression of the SEPSIS per Dr Hickman and Dr Aragon . Please document a response in Progress Note or Discharge Summary. 1. Yes 2. No 3. Other, with explanation of clinical findings 4. Clinically undetermined, no explanation for clinical findings. PHYSICIAN RESPONSE Do you agree w/Consulting Dx?: Yes Please remember a lack of response to the above will prompt a phone page by [facility]/Coding staff. In responding to this query, please exercise your independent professional judgment. The purpose of this communication is to more accurately reflect the c omplexity of your patients condition. The fact that a question is asked does not imply that any particular answer is desired or expected. Thank you for your timely response to this clarification. Requestors name: Lizy Brannon Phone # [phone] THIS PHYSICIAN QUERY FORM IS A PERMANENT PART OF THE MEDICAL RECORD LIZY NIEVES Jun 20, 2019 14:17 GERALD VALENZUELA MD Jun 27, 2019 09:11
== END 2019-06-12 13:53 | disposition home or self-care (01) | DRG 872 ==
LOC: EDUNIT# 07:14 → ER 07:15 → 4TH 09:47
PROVIDERS: ADMIT Family Medicine; ATTEND Family Medicine
DX: A41.9 Sepsis, unspecified organism (principal); N30.01 Acute cystitis with hematuria; K52.9 Noninfective gastroenteritis and colitis, unspecified; E28.2 Polycystic ovarian syndrome; R10.33 Periumbilical pain; F17.210 Nicotine dependence, cigarettes, uncomplicated; F12.90 Cannabis use, unspecified, uncomplicated
CPT/HCPCS: 36415; 74022; 74177; 76700; 80053; 80306; 80320; 81000; 82150; 83605; 83690; 83735; 84703; 85007; 85025; 85027; 87015; 87040; 87045; 87046; 87088; 87324; 87328; 87329; 87449; 87899; 96361; 96374; 96375

== ENCOUNTER 2020-07-18 15:31 | Emergency (ER) | payer OTHER ==
[~2020-07-18] VITALS: Ht 167 cm; Wt 81.0 kg
[~2020-07-18 15:31] MED LIST changes: +D-ME473S11 PO; -D-ME473S38 PO
[2020-07-18] MEDS ORDERED: KETOROLAC 30 MG/ML VIAL IVP ONE (16:00)
--- NOTE | 2020-07-18 16:03 | ED Abdominal Pain ---
General Stated Complaint: ABD PAIN;PAINFUL URINATION Source of Information: Patient Exam Limitations: No Limitations History of Present Illness Date Seen by Provider: Jul 18, 2020 Time Seen by Provider: 16:01 Initial Comments To ER with a one-week history of abdominal pain suprapubic in location with burning urination. She was told by someone that she might have an STD. She wasn't going to come get evaluated for this she states until she found out that she might have an STD and then decided she should get checked. Timing/Duration: 1 Week Severity/Quality: Moderate Location: Suprapubic Radiation: No Radiation Activities at Onset: None Allergies and Home Medications Allergies Coded Allergies: Penicillins (Verified Allergy, Unknown, 04/19/14) talc (Verified Allergy, Unknown, 04/19/14) Home Medications No Active Prescriptions or Reported Meds Patient Home Medication List Home Medication List Reviewed: Yes Review of Systems Review of Systems Constitutional: see HPI EENTM: No Symptoms Reported Respiratory: No Symptoms Reported Cardiovascular: No Symptoms Reported Gastrointestinal: See HPI, Abdominal Pain Genitourinary: See HPI, Burning Musculoskeletal: no symptoms reported Skin: no symptoms reported Psychiatric/Neurological: No Symptoms Reported Endocrine: No Symptoms Reported Past Skqggfz-Lhpfaf-Qkgdhl Hx Patient Social History Alcohol Beverage of Choice: Beer Drug of Choice: THC Type Used: Cigarettes 2nd Hand Smoke Exposure: Yes Recent Foreign Travel: No Contact w/Someone Who Travel: No Recent Hopitalizations: No Immunizations Up To Date Tetanus Booster (TDap): Unknown PED Vaccines UTD: Yes Seasonal Allergies Seasonal Allergies: Yes Past Medical History Surgeries: Yes (RIGHT ANKLE FX/ORIF) Orthopedic Respiratory: Yes Asthma Cardiac: No Neurological: No Reproductive Disorders: Yes (PCOS) Female Reproductive Disorders: Polycystic Ovarian Dis Genitourinary: No Gastrointestinal: No Musculoskeletal: No Endocrine: No HEENT: No Cancer: No Psychosocial: Yes Anxiety Integumentary: Yes Psoriasis Blood Disorders: No Family Medical History No Pertinent Family Hx Physical Exam Vital Signs Vital Signs - First Documented 07/18/20 15:47 Temp 36.2 Pulse 105 Resp 18 B/P (MAP) 138/106 (117) Pulse Ox 99 Capillary Refill : Height/Weight/BMI Height: 5'5.00" Weight: 165lbs. 8.0oz. 75.442200lz; 27.54 BMI Method:Actual General Appearance: WD/WN, no apparent distress HEENT: PERRL/EOMI, normal ENT inspection Respiratory: normal breath sounds, no respiratory distress, no accessory muscle use Gastrointestinal: normal bowel sounds, soft, tenderness Extremities: normal range of motion, non-tender Neurologic/Psychiatric: alert, normal mood/affect, oriented x 3 Skin: normal color, warm/dry Progress/Results/Core Measures Results/Orders Lab Results Laboratory Tests Test 07/18/20 16:00 07/18/20 16:06 Range/Units White Blood Count 13.8 H 4.3-11.0 10^3/uL Red Blood Count 5.25 H 3.80-5.11 10^6/uL Hemoglobin 16.1 H 11.5-16.0 g/dL Hematocrit 48 35-52 % Mean Corpuscular Volume 91 80-99 fL Mean Corpuscular Hemoglobin 31 25-34 pg Mean Corpuscular Hemoglobin Concent 34 32-36 g/dL Red Cell Distribution Width 12.5 10.0-14.5 % Platelet Count 290 130-400 10^3/uL Mean Platelet Volume 10.5 9.0-12.2 fL Immature Granulocyte % (Auto) 0 % Neutrophils (%) (Auto) 70 42-75 % Lymphocytes (%) (Auto) 20 12-44 % Monocytes (%) (Auto) 8 0-12 % Eosinophils (%) (Auto) 2 0-10 % Basophils (%) (Auto) 1 0-10 % Neutrophils # (Auto) 9.7 H 1.8-7.8 10^3/uL Lymphocytes # (Auto) 2.7 1.0-4.0 10^3/uL Monocytes # (Auto) 1.1 H 0.0-1.0 10^3/uL Eosinophils # (Auto) 0.2 0.0-0.3 10^3/uL Basophils # (Auto) 0.1 0.0-0.1 10^3/uL Immature Granulocyte # (Auto) 0.0 0.0-0.1 10^3/uL Urine Color ORANGE Urine Clarity CLOUDY Urine pH 6.0 5-9 Urine Specific [place] >=1.030 1.016-1.022 Urine Protein TRACE H NEGATIVE Urine Glucose (UA) NEGATIVE NEGATIVE Urine Ketones 3+ H NEGATIVE Urine Nitrite NEGATIVE NEGATIVE Urine Bilirubin 2+ H NEGATIVE Urine Urobilinogen 1.0 < = 1.0 MG/DL Urine Leukocyte Esterase NEGATIVE NEGATIVE Urine RBC (Auto) NEGATIVE NEGATIVE Urine RBC RARE /HPF Urine WBC 2-5 /HPF Urine Squamous Epithelial Cells 25-50 H /HPF Urine Crystals PRESENT H /LPF Urine Calcium Oxalate Crystals FEW H /LPF Urine Amorphous Sediment RARE JACKIE URATES H /LPF Urine Bacteria MODERATE H /HPF Urine Casts NONE /LPF Urine Mucus LARGE H /LPF Urine Culture Indicated YES Sodium Level 141 135-145 MMOL/L Potassium Level 3.6 3.6-5.0 MMOL/L Chloride Level 104 98-107 MMOL/L Carbon Dioxide Level 21 21-32 MMOL/L Anion Gap 16 H 5-14 MMOL/L Blood Urea Nitrogen 9 7-18 MG/DL Creatinine 0.78 0.60-1.30 MG/DL Estimat Glomerular Filtration Rate > 60 BUN/Creatinine Ratio 12 Glucose Level 78 70-105 MG/DL Calcium Level 9.7 8.5-10.1 MG/DL Corrected Calcium 8.5-10.1 MG/DL Total Bilirubin 1.8 H 0.1-1.0 MG/DL Aspartate Amino Transf (AST/SGOT) 22 5-34 U/L Alanine Aminotransferase (ALT/SGPT) 20 0-55 U/L Alkaline Phosphatase 86 40-136 U/L Total Protein 8.1 6.4-8.2 GM/DL Albumin 4.8 H 3.2-4.5 GM/DL Serum Test, Qualitative NEGATIVE NEGATIVE Urine Opiates Screen NEGATIVE NEGATIVE Urine Oxycodone Screen NEGATIVE NEGATIVE Urine Methadone Screen NEGATIVE NEGATIVE Urine Propoxyphene Screen NEGATIVE NEGATIVE Urine Barbiturates Screen NEGATIVE NEGATIVE Ur Tricyclic Antidepressants Screen NEGATIVE NEGATIVE Urine Phencyclidine Screen NEGATIVE NEGATIVE Urine Amphetamines Screen NEGATIVE NEGATIVE Urine Methamphetamines Screen NEGATIVE NEGATIVE Urine Benzodiazepines Screen NEGATIVE NEGATIVE Urine Cocaine Screen NEGATIVE NEGATIVE Urine Cannabinoids Screen POSITIVE H NEGATIVE Micro Results Microbiology 07/18/20 Genital Culture, Resulted Pending 07/18/20 Wet Prep - Final, Resulted My Orders Orders - SANJAY CARTWRIGHT APRN Cbc With Automated Diff (07/18/20 15:51) Comprehensive Metabolic Panel (07/18/20 15:51) Ua Culture If Indicated (07/18/20 15:51) Drug Screen Stat (Urine) (07/18/20 15:51) Ed Iv/Invasive Line Start (07/18/20 15:51) Wet Prep (07/18/20 15:51) Genital Culture (07/18/20 15:51) Neisseria Gonorrhea Swab (07/18/20 15:51) Chlamydia Trachomatis Swab (07/18/20 15:51) Ketorolac Injection (Toradol Injection) (07/18/20 16:00) Hcg,Qualitative Serum (07/18/20 16:03) Us Non Ob Transvaginal [id number] (07/18/20 16:03) Ammonia Inhalation (Ammonia Inhalation) (07/18/20 16:34) Urine Culture (07/18/20 16:06) Ns Iv 1000 Ml (Sodium Chloride 0.9%) (07/18/20 17:00) Ct Abd/Pelv W (Appendicitis) (07/18/20 17:07) Iohexol Injection (Omnipaque 350 Mg/Ml 1 (07/18/20 17:15) Received Contrast (Hold Metformin- Contr (07/18/20 17:15) Ns (Ivpb) (Sodium Chloride 0.9% Ivpb Bag (07/18/20 17:15) Medications Given in ED Current Medications Medications Dose Ordered Sig/Blaise Route Start Time Stop Time Status Last Admin Dose Admin Ketorolac Tromethamine 15 mg ONCE ONCE IVP 07/18/20 16:00 07/18/20 16:01 DC 07/18/20 16:08 15 MG Vital Signs/I&O 07/18/20 15:47 Temp 36.2 Pulse 105 Resp 18 B/P (MAP) 138/106 (117) Pulse Ox 99 Departure Impression Primary Impression: Abdominal pain Qualified Codes: R10.9 - Unspecified abdominal pain Disposition: HOME, SELF-CARE Condition: Stable Departure-Patient Inst. Decision time for Depature: 18:06 Referrals: [facility] (PCP) Primary Care Physician DANI SAMS DO (Family) Primary Care Physician Patient Instructions: No Instuctions Given Add. Discharge Instructions: 1. Return to ER for any concerns 2. Follow-up with your doctor next week. Return to ER for any worsening. Scripts No Active Prescriptions or Reported Meds SANJAY CARTWRIGHT APRN Jul 18, 2020 16:03
[2020-07-18 16:18] LABS: CLARITY,URINE CLOUDY; COLOR,URINE ORANGE; GLUCOSE, URINE (UA) NEGATIVE (NEGATIVE); KETONES,URINE 3+ (NEGATIVE); LEUKOCYTE ESTERASE ,URINE NEGATIVE (NEGATIVE); NITRITE,URINE NEGATIVE (NEGATIVE); PROTEIN,URINE TRACE (NEGATIVE)
[2020-07-18 16:23] LABS: BASOPHILS # (AUTO) 0.1 10^3/uL (0.0-0.1); BASOPHILS % (AUTO) 1 % (0-10); EOSINOPHILS # (AUTO) 0.2 10^3/uL (0.0-0.3); EOSINOPHILS % (AUTO) 2 % (0-10); HEMATOCRIT 48 % (35-52); HEMOGLOBIN 16.1 g/dL (11.5-16.0); LYMPHOCYTES # (AUTO) 2.7 10^3/uL (1.0-4.0); LYMPHOCYTES % (AUTO) 20 % (12-44); MEAN CORPUSCULAR HEMOGLOBIN 31 pg (25-34); MEAN CORPUSCULAR HGB CONC 34 g/dL (32-36); MEAN CORPUSCULAR VOLUME 91 fL (80-99); MEAN PLATELET VOLUME 10.5 fL (9.0-12.2); MONOCYTES # (AUTO) 1.1 10^3/uL (0.0-1.0); MONOCYTES % (AUTO) 8 % (0-12); NEUTROPHILS # (AUTO) 9.7 10^3/uL (1.8-7.8); NEUTROPHILS % (AUTO) 70 % (42-75); PLATELET COUNT 290 10^3/uL (130-400); WHITE BLOOD COUNT 13.8 10^3/uL (4.3-11.0)
[2020-07-18 16:28] LABS: ALBUMIN 4.8 GM/DL (3.2-4.5); CHLORIDE 104 MMOL/L (98-107); POTASSIUM 3.6 MMOL/L (3.6-5.0); SODIUM 141 MMOL/L (135-145)
[2020-07-18 16:29] LABS: CALCIUM 9.7 MG/DL (8.5-10.1)
[2020-07-18 16:30] LABS: GLUCOSE 78 MG/DL (70-105); TOTAL PROTEIN 8.1 GM/DL (6.4-8.2)
[2020-07-18 16:31] LABS: CARBON DIOXIDE 21 MMOL/L (21-32)
[2020-07-18 16:32] LABS: AMPHETAMINE SCREEN, URINE NEGATIVE (NEGATIVE); BARBITURATE SCREEN URINE NEGATIVE (NEGATIVE); BENZODIAZEPINES SCREEN URINE NEGATIVE (NEGATIVE); BILIRUBIN,TOTAL 1.8 MG/DL (0.1-1.0); CANNABINOID SCREEN, URINE POSITIVE (NEGATIVE); COCAINE SCREEN URINE NEGATIVE (NEGATIVE); METHADONE STAT NEGATIVE (NEGATIVE); METHAMPHETAMINE SCREEN URINE S NEGATIVE (NEGATIVE); OPIATE SCREEN URINE NEGATIVE (NEGATIVE); OXYCODONE STAT NEGATIVE (NEGATIVE); PROPOXYPHENE STAT NEGATIVE (NEGATIVE); TRICYCLIC ANTIDEPRESSANTS SCRE NEGATIVE (NEGATIVE)
[2020-07-18 16:34] LABS: ALKALINE PHOSPHATASE 86 U/L (40-136); CREATININE SERUM 0.78 MG/DL (0.60-1.30); GFR ESTIMATED > 60
[2020-07-18] MEDS ORDERED: AMMONIA INHALATION 0.33 ML AMP ONE (16:34)
[2020-07-18 16:35] LABS: BUN/CREATININE RATIO 12
[2020-07-18 16:36] LABS: RBC,URINE RARE /HPF
[2020-07-18 16:37] LABS: ALANINE AMINOTRANSFERASE 20 U/L (0-55); AMORPHOUS SEDIMENT,UR RARE AMOR URATES /LPF; BACTERIA,URINE MODERATE /HPF; CALCIUM OXALATE CRYSTALS,UR FEW /LPF; SQUAMOUS EPITHELIAL CELL,UR 25-50 /HPF
[2020-07-18 16:38] LABS: BILIRUBIN,URINE 2+ (NEGATIVE)
[2020-07-18] MEDS ORDERED: NS IV 1000 ML 1,000 ML IV SCH (17:00)
[2020-07-18] MEDS ORDERED: HOLD METFORMIN - RECEIVED CONTRAST 20 ML VIAL IV SCH (17:15)
[2020-07-18] MEDS ORDERED: NS 100 ML (IVPB) BAG IV ONE (17:15)
[2020-07-18] MEDS ORDERED: IOHEXOL 350 MG/ML 100 ML (OMNIPAQUE 350) VIAL IV ONE (17:15)
--- NOTE | 2020-07-18 17:21 | Diagnostic Imaging Report ---
PROCEDURE: US NONOB transvaginal. TECHNIQUE: Multiple real-time grayscale images were obtained of the pelvis in various projections endovaginally. INDICATION: Pelvic pain Uterus measures 6.5 x 3.1 x 3.6 cm. Endometrial stripe 7 mm. The myometrium and endometrium appear normal. Right ovary is normal in size with normal blood flow. Left ovary is normal in size. It contains a 1.5 cm follicular cysts. There is no free fluid. IMPRESSION: Unremarkable pelvic sonogram Dictated by: Dictated on workstation # [id number]
--- NOTE | 2020-07-18 17:56 | Diagnostic Imaging Report ---
PROCEDURE: CT abdomen and pelvis with contrast, rule out appendicitis. TECHNIQUE: Multiple contiguous axial images were obtained through the abdomen and pelvis after the administration of intravenous contrast. All CT scans use one or more of the following dose optimizing techniques: automated exposure control, MA and/or KvP adjustment based on patient size and exam type or iterative reconstruction. INDICATION: Mid abdominal and pelvic pain Lung bases are clear. Liver appears normal. Gallbladder is present. Pancreas is normal. Spleen is not enlarged. Adrenals are normal. Kidneys appear normal. Small bowel is not dilated. There is no evidence of appendicitis. Colon appears normal. Uterus is present and appears normal. Ovaries appear normal. There is no intraperitoneal free air or free fluid. IMPRESSION: Unremarkable CT of the abdomen and pelvis Dictated by: Dictated on workstation # [id number]
[2020-07-18 18:15] VITALS: BP 122/82
== END 2020-07-18 18:15 | disposition home or self-care (01) ==
LOC: EDUNIT# 15:31 → ER 15:32
DX: R10.9 Unspecified abdominal pain (principal); Z77.22 Contact with and (suspected) exposure to environmental tobacco smoke (acute) (chronic); Z88.0 Allergy status to penicillin
CPT/HCPCS: 36415; 74177; 76830; 80053; 80306; 81000; 84703; 85025; 87070; 87088; 87205; 87210; 87491; 87591

== ENCOUNTER 2021-09-23 10:31 | Emergency (ER) | payer SELFPAY ==
[~2021-09-23] VITALS: Ht 162 cm; Wt 89.0 kg
[~2021-09-23 10:31] MED LIST changes: +CYCL10TA25 PO; -CYCL10TA9 PO
[2021-09-23] MEDS ORDERED: LACTATED RINGERS 1,000 ML IV SCH (11:00)
[2021-09-23] MEDS ORDERED: ONDANSETRON 4 MG/2 ML (SDV) Z0FRAN IVP ONE (11:00)
[2021-09-23] MEDS ORDERED: LACTATED RINGERS 1,000 ML IV ONE (11:01)
[2021-09-23] MEDS ORDERED: ONDANSETRON 4 MG/2 ML (SDV) Z0FRAN ONE (11:01)
--- NOTE | 2021-09-23 11:02 | ED General ---
General Chief Complaint: Cough/Cold/Flu Symptoms Stated Complaint: R FOOT/TOES PAIN,COVID SYMPTOMS Nursing Triage Note: PT STATES 103 FEVER FOR A COUPLE DAYS. STATES HAD COVID IN . ALSO SLIPPED AND HURT RT FOOT THIS A.M. Source of Information: Patient Exam Limitations: No Limitations History of Present Illness Date Seen by Provider: Sep 23, 2021 Time Seen by Provider: 11:01 Initial Comments To ER with pain over the right distal first second third metatarsals after stepping on a Lego this morning. She also has had a productive cough body aches fever up to 101 degrees for the past week. She states that she had Covid in May. Timing/Duration: 1 Week Associated Systoms: Fever/Chills, Headaches, Nausea/Vomiting Allergies and Home Medications Allergies Coded Allergies: Penicillins (Verified Allergy, Unknown, 04/19/14) talc (Verified Allergy, Unknown, 04/19/14) Patient Home Medication List Home Medication List Reviewed: Yes No Active Prescriptions or Reported Meds Review of Systems Review of Systems Constitutional: see HPI EENTM: see HPI Respiratory: see HPI, cough Cardiovascular: no symptoms reported Genitourinary: no symptoms reported Musculoskeletal: no symptoms reported Skin: no symptoms reported Psychiatric/Neurological: No Symptoms Reported Hematologic/Lymphatic: No Symptoms Reported Immunological/Allergic: no symptoms reported Past Pihxwpc-Ovwleh-Kdgutc Hx Immunizations Up To Date Tetanus Booster (TDap): Unknown PED Vaccines UTD: Yes Seasonal Allergies Seasonal Allergies: Yes Past Medical History Surgeries: Yes (RIGHT ANKLE FX/ORIF) Orthopedic Respiratory: Yes Asthma Cardiac: No Neurological: No Last Menstrual Period: Sep 21, 2021 Reproductive Disorders: Yes (PCOS) Female Reproductive Disorders: Polycystic Ovarian Dis Genitourinary: No Gastrointestinal: No Musculoskeletal: No Endocrine: No HEENT: No Cancer: No Psychosocial: Yes Anxiety Integumentary: Yes Psoriasis Blood Disorders: No Family Medical History No Pertinent Family Hx Physical Exam Vital Signs Vital Signs - First Documented 09/23/21 10:51 Temp 37.8 Pulse 105 Resp 20 B/P (MAP) 164/104 (124) Pulse Ox 98 O2 Delivery Room Air Capillary Refill : Height, Weight, BMI Height: 5'5.00" Weight: 165lbs. 8.0oz. 75.260862za; 33.00 BMI Method:Actual General Appearance: No Apparent Distress, WD/WN Eyes: Bilateral Eye Normal Inspection, Bilateral Eye PERRL, Bilateral Eye EOMI Neck: Full Range of Motion, Normal Inspection Respiratory: Normal Breath Sounds, No Accessory Muscle Use, No Respiratory Distress Cardiovascular: Normal Peripheral Pulses, Tachycardia Gastrointestinal: Normal Bowel Sounds, Non Tender, Soft Extremity: Normal Capillary Refill, Normal Inspection, Other (Abrasion over the great toe on the right, minor ecchymosis at the third MTP joint) Neurologic/Psychiatric: Alert, Oriented x3 Skin: Normal Color, Warm/Dry Progress/Results/Core Measures Suspected Sepsis SIRS Temperature: Pulse: 105 Respiratory Rate: 20 Laboratory Tests 09/23/21 10:55: White Blood Count 5.6 Blood Pressure 164 /104 Mean: 124 Laboratory Tests 09/23/21 10:55: Creatinine 0.76, Platelet Count 213, Total Bilirubin 0.7 Results/Orders Lab Results Laboratory Tests Test 09/23/21 10:55 Range/Units White Blood Count 5.6 4.3-11.0 10^3/uL Red Blood Count 4.86 3.80-5.11 10^6/uL Hemoglobin 15.0 11.5-16.0 g/dL Hematocrit 46 35-52 % Mean Corpuscular Volume 94 80-99 fL Mean Corpuscular Hemoglobin 31 25-34 pg Mean Corpuscular Hemoglobin Concent 33 32-36 g/dL Red Cell Distribution Width 12.1 10.0-14.5 % Platelet Count 213 130-400 10^3/uL Mean Platelet Volume 10.2 9.0-12.2 fL Immature Granulocyte % (Auto) 0 % Neutrophils (%) (Auto) 65 42-75 % Lymphocytes (%) (Auto) 17 12-44 % Monocytes (%) (Auto) 15 H 0-12 % Eosinophils (%) (Auto) 3 0-10 % Basophils (%) (Auto) 1 0-10 % Neutrophils # (Auto) 3.6 1.8-7.8 10^3/uL Lymphocytes # (Auto) 0.9 L 1.0-4.0 10^3/uL Monocytes # (Auto) 0.9 0.0-1.0 10^3/uL Eosinophils # (Auto) 0.2 0.0-0.3 10^3/uL Basophils # (Auto) 0.0 0.0-0.1 10^3/uL Immature Granulocyte # (Auto) 0.0 0.0-0.1 10^3/uL Sodium Level 139 135-145 MMOL/L Potassium Level 4.1 3.6-5.0 MMOL/L Chloride Level 109 H 98-107 MMOL/L Carbon Dioxide Level 19 L 21-32 MMOL/L Anion Gap 11 5-14 MMOL/L Blood Urea Nitrogen 8 7-18 MG/DL Creatinine 0.76 0.60-1.30 MG/DL Estimat Glomerular Filtration Rate 89 BUN/Creatinine Ratio 11 Glucose Level 94 70-105 MG/DL Calcium Level 8.9 8.5-10.1 MG/DL Corrected Calcium 8.7 8.5-10.1 MG/DL Total Bilirubin 0.7 0.1-1.0 MG/DL Aspartate Amino Transf (AST/SGOT) 39 H 5-34 U/L Alanine Aminotransferase (ALT/SGPT) 40 0-55 U/L Alkaline Phosphatase 80 40-136 U/L Total Protein 7.9 6.4-8.2 GM/DL Albumin 4.2 3.2-4.5 GM/DL Serum Test, Qualitative NEGATIVE NEGATIVE Influenza Type A (RT-PCR) Detected H Not Detecte Influenza Type B (RT-PCR) Not Detected Not Detecte SARS-CoV-2 RNA (RT-PCR) Not Detected Not Detecte My Orders Orders - SANJAY CARTWRIGHT APRN Covid 19 Inhouse Test (09/23/21 10:59) Hcg,Qualitative Serum (09/23/21 10:59) Ed Iv/Invasive Line Start (09/23/21 10:59) Cbc With Automated Diff (09/23/21 10:59) Comprehensive Metabolic Panel (09/23/21 10:59) Influenza A And B By Pcr (09/23/21 10:59) Chest 1 View, Ap/Pa Only (09/23/21 10:59) Foot, Right, 3 View (09/23/21 10:59) Ondansetron Injection (Zofran Injectio (09/23/21 11:00) Lactated Ringers (Lr 1000 Ml Iv Solution (09/23/21 11:00) Ondansetron Injection (Zofran Injectio (09/23/21 11:01) Lactated Ringers (Lr 1000 Ml Iv Solution (09/23/21 11:01) Medications Given in ED Current Medications Medications Dose Ordered Sig/Blaise Route Start Time Stop Time Status Last Admin Dose Admin Ondansetron HCl 8 mg ONCE ONCE IVP 09/23/21 11:00 09/23/21 11:02 DC 09/23/21 11:03 8 MG Vital Signs/I&O 09/23/21 10:51 Temp 37.8 Pulse 105 Resp 20 B/P (MAP) 164/104 (124) Pulse Ox 98 O2 Delivery Room Air Capillary Refill : Blood Pressure Mean: 124 Departure Communication (Admissions) She is beyond the point of starting Tamiflu or Xofluza Impression Primary Impression: Foot contusion Additional Impression: Influenza A Disposition: HOME, SELF-CARE Condition: Stable Departure-Patient Inst. Decision time for Depature: 12:39 Referrals: [facility] [place] (PCP/Family) Primary Care Physician Add. Discharge Instructions: 1. Return to ER for any concerns 2. Follow-up with your doctor next week 3. All discharge instructions reviewed with patient and/or family. Voiced understanding. Scripts Acetaminophen with Codeine (Acetaminophen-Cod #3 Tablet) 1 Each Tablet 1 EACH PO Q6H PRN for COUGH for 7 Days, #10 TAB Prov: SANJAY CARTWRIGHT APRN 09/23/21 Work/School Note: Work Release Form Date Seen in the Emergency Department: Sep 25, 2021 Return to Work: Sep 23, 2021 SANJAY CARTWRIGHT APRN Sep 23, 2021 11:02
[2021-09-23 11:08] LABS: BASOPHILS % (AUTO) 1 % (0-10); EOSINOPHILS # (AUTO) 0.2 10^3/uL (0.0-0.3); EOSINOPHILS % (AUTO) 3 % (0-10); HEMATOCRIT 46 % (35-52); LYMPHOCYTES # (AUTO) 0.9 10^3/uL (1.0-4.0); LYMPHOCYTES % (AUTO) 17 % (12-44); MEAN CORPUSCULAR HEMOGLOBIN 31 pg (25-34); MEAN CORPUSCULAR HGB CONC 33 g/dL (32-36); MEAN CORPUSCULAR VOLUME 94 fL (80-99); MEAN PLATELET VOLUME 10.2 fL (9.0-12.2); MONOCYTES # (AUTO) 0.9 10^3/uL (0.0-1.0); MONOCYTES % (AUTO) 15 % (0-12); NEUTROPHILS # (AUTO) 3.6 10^3/uL (1.8-7.8); NEUTROPHILS % (AUTO) 65 % (42-75); PLATELET COUNT 213 10^3/uL (130-400); WHITE BLOOD COUNT 5.6 10^3/uL (4.3-11.0)
[2021-09-23 11:18] LABS: ALBUMIN 4.2 GM/DL (3.2-4.5); POTASSIUM 4.1 MMOL/L (3.6-5.0)
[2021-09-23 11:19] LABS: CALCIUM 8.9 MG/DL (8.5-10.1)
[2021-09-23 11:21] LABS: TOTAL PROTEIN 7.9 GM/DL (6.4-8.2)
[2021-09-23 11:22] LABS: BILIRUBIN,TOTAL 0.7 MG/DL (0.1-1.0)
[2021-09-23 11:24] LABS: CREATININE SERUM 0.76 MG/DL (0.60-1.30)
[2021-09-23] MEDS ORDERED: ACET1TAB43 PO (12:40)
--- NOTE | 2021-09-23 12:45 | Diagnostic Imaging Report ---
INDICATION: Fever. TIME OF EXAM: 12:27 PM. COMPARISON: 06/10/2019. FINDINGS: The heart size is normal. The pulmonary vascularity is unremarkable. The lungs are clear. No infiltrate, effusion, or pneumothorax is detected. IMPRESSION: No acute cardiopulmonary process is detected. Dictated by: Dictated on workstation # [id number]
--- NOTE | 2021-09-23 12:46 | Diagnostic Imaging Report ---
INDICATION: Fall with right foot injury. TIME OF EXAM: 12:27 PM. TECHNIQUE: Three views of the right foot were obtained. FINDINGS: There is a bunion deformity noted. The metatarsals are intact. The phalanges appear intact. The midfoot and hindfoot are unremarkable. No fractures are seen. IMPRESSION: No acute abnormality is detected. Dictated by: Dictated on workstation # [id number]
[2021-09-23 12:54] VITALS: BP 155/92
== END 2021-09-23 12:54 | disposition home or self-care (01) ==
LOC: EDUNIT# 10:31 → ER 10:33
DX: S90.31XA Contusion of right foot, initial encounter (principal); J10.1 Influenza due to other identified influenza virus with other respiratory manifestations; J45.909 Unspecified asthma, uncomplicated; Z20.822 Contact with and (suspected) exposure to COVID-19; W18.40XA Slipping, tripping and stumbling without falling, unspecified, initial encounter
CPT/HCPCS: 36415; 71045; 73630; 80053; 84703; 85025; 87636

== ENCOUNTER 2021-12-16 11:57 | Emergency (ER) | payer SELFPAY ==
[~2021-12-16] VITALS: Ht 162.5 cm; Wt 90.7 kg
[~2021-12-16 11:57] MED LIST changes: +ACET1TAB43 PO
[2021-12-16 12:12] VITALS: BP 139/84
--- NOTE | 2021-12-16 12:28 | ED Upper Extremity ---
General Chief Complaint: Laceration Stated Complaint: L THUMB LAC Source: patient Exam Limitations: no limitations History of Present Illness Date Seen by Provider: Dec 16, 2021 Time Seen by Provider: 12:28 Initial Comments To ER by private vehicle with reports of the laceration to the dorsal aspect of the left thumb that occurred from pocket knife just prior to arrival. Tetanus not up-to-date. Onset: just prior to arrival Severity: mild Pain/Injury Location: left thumb Modifying Factors: Improves With Movement Allergies and Home Medications Allergies Coded Allergies: Penicillins (Verified Allergy, Unknown, 04/19/14) talc (Verified Allergy, Unknown, 04/19/14) Patient Home Medication List Home Medication List Reviewed: Yes Acetaminophen with Codeine (Acetaminophen-Cod #3 Tablet) 1 Each Tablet, 1 EACH PO Q6H PRN for COUGH Prescribed by: SANJAY CARTWRIGHT on 09/23/21 1240 Review of Systems Constitutional: see HPI EENTM: see HPI Respiratory: no symptoms reported Cardiovascular: no symptoms reported Genitourinary: no symptoms reported Musculoskeletal: no symptoms reported Skin: see HPI Psychiatric/Neurological: No Symptoms Reported Past Bzecewi-Rvmkkb-Iynsxo Hx Patient Social History Tobacco Use?: Yes Smoking Status: Current Everyday Smoker Use of E-Cig and/or Vaping dev: No Substance use?: No Alcohol Use?: Yes Alcohol Frequency: Couple times a week Pt feels they are or have been: No Immunizations Up To Date Tetanus Booster (TDap): Unknown PED Vaccines UTD: Yes Seasonal Allergies Seasonal Allergies: Yes Past Medical History Surgeries: Yes (RIGHT ANKLE FX/ORIF) Orthopedic Respiratory: Yes Asthma Cardiac: No Neurological: No Reproductive Disorders: Yes (PCOS) Female Reproductive Disorders: Polycystic Ovarian Dis Genitourinary: No Gastrointestinal: No Musculoskeletal: No Endocrine: No HEENT: No Cancer: No Psychosocial: Yes Anxiety Integumentary: Yes Psoriasis Blood Disorders: No Family Medical History No Pertinent Family Hx Physical Exam Vital Signs Capillary Refill : Height, Weight, BMI Height: 5'5.00" Weight: 165lbs. 8.0oz. 75.858858fx; 33.00 BMI Method:Actual General Appearance: WD/WN, no apparent distress Neck: non-tender, full range of motion Respiratory: no respiratory distress, no accessory muscle use Shoulder: normal inspection, non-tender Elbow/Forearm: normal inspection, non-tender Wrist: Yes normal inspection, Yes non-tender Hand: Left, laceration (1 cm laceration overlying the dorsal aspect of the left hand over the MCP joint. Depth to subcutaneous tissue but there is no extensor tendon injury. She has full thumb extension abilities with normal sensation distally and there is no penetration into the joint space.) Neurologic/Psychiatric: alert, normal mood/affect, oriented x 3 Skin: normal color, warm/dry Departure Communication (Admissions) Area was anesthetized with 1 mL of 1% lidocaine without epinephrine. Scrubbed with chlorhexidine/saline solution then irrigated with the same. No foreign bodies identified. Closed with 3 simple erupted sutures size 5-0 Ethilon. Impression Primary Impression: Finger laceration Disposition: HOME, SELF-CARE Condition: Stable Departure-Patient Inst. Decision time for Depature: 12:30 Referrals: [facility] [place] (PCP/Family) Primary Care Physician Patient Instructions: Laceration Repair With Stitches ED Add. Discharge Instructions: You can shower letting water run over this starting today. Do not soak this in water such as a bathtub hot tub or swimming pool until stitches are removed. Return to ER to have the stitches removed in about 10 days. All discharge instructions reviewed with patient and/or family. Voiced understanding. SANJAY CARTWRIGHT APRN Dec 16, 2021 12:28
[2021-12-16] MEDS ORDERED: TETANUS,DIPTH,PERTUSS P/F (BOOSTRIX) 0.5 ML VIAL IM ONE (12:30)
== END 2021-12-16 12:39 | disposition home or self-care (01) ==
LOC: EDUNIT# 11:57 → ER 11:59
DX: S61.012A Laceration without foreign body of left thumb without damage to nail, initial encounter (principal); F17.290 Nicotine dependence, other tobacco product, uncomplicated; Z23 Encounter for immunization; W26.0XXA Contact with knife, initial encounter
CPT/HCPCS: 90471; 90715; 99284

== ENCOUNTER 2022-03-19 09:06 | Emergency (ER) | payer SELFPAY ==
[~2022-03-19] VITALS: Ht 162.5 cm; Wt 86.1 kg
[~2022-03-19 09:06] MED LIST changes: +ACET-11 PO; -ACET1TAB43 PO
--- NOTE | 2022-03-19 09:39 | ED Upper Extremity ---
General Chief Complaint: Upper Extremity Stated Complaint: RIGHT HAND INJ / PAIN Nursing Triage Note: injured her right hand last night while rough housing with her son. son fell on her right hand onto the hardwood floor. at 2 am pain started with increased pain when moving noted brusing. Source: patient Exam Limitations: no limitations History of Present Illness Date Seen by Provider: Mar 19, 2022 Time Seen by Provider: 09:20 Initial Comments Patient presents ER by private conveyance with chief complaint last night while roughhousing with her son he fell backwards and she stuck her hand between his head and a hardwood floor. She woke up this morning about 2 AM with a lot of pain, bruising and swelling in her right hand and inability to flex her fingers fully. No prior injury to her hand. No numbness or tingling. 400 mg of Motrin at approximately 2 AM. LMP 1 week ago. Allergies and Home Medications Allergies Coded Allergies: Penicillins (Verified Allergy, Unknown, 04/19/14) talc (Verified Allergy, Unknown, 04/19/14) Patient Home Medication List Home Medication List Reviewed: Yes Acetaminophen with Codeine (Acetaminophen-Cod #3 Tablet) 1 Each Tablet, 1 EACH PO Q6H PRN for COUGH Prescribed by: SANJAY CARTWRIGHT on 09/23/21 1240 Review of Systems Constitutional: No chills, No diaphoresis EENTM: No ear discharge, No ear pain Respiratory: No cough, No short of breath Cardiovascular: No Hx of Intervention, No palpitations All Other Systems Reviewed Negative Unless Noted: Yes Past Hvurlws-Cnvyyh-Xshdyw Hx Patient Social History Tobacco Use?: Yes Tobacco type used: Cigarettes Smoking Status: Current Everyday Smoker Substance use?: Yes Substance type: Marijuana Alcohol Use?: Yes Alcohol Frequency: Rarely Pt feels they are or have been: No Immunizations Up To Date Tetanus Booster (TDap): Unknown PED Vaccines UTD: Yes First/Initial COVID19 Vaccinat: declined Seasonal Allergies Seasonal Allergies: Yes Past Medical History Surgeries: Yes (RIGHT ANKLE FX/ORIF) Orthopedic Respiratory: Yes Asthma Cardiac: No Neurological: No Reproductive Disorders: Yes (PCOS) Female Reproductive Disorders: Polycystic Ovarian Dis Genitourinary: No Gastrointestinal: No Musculoskeletal: No Endocrine: No HEENT: No Cancer: No Psychosocial: Yes Anxiety Integumentary: Yes Psoriasis Blood Disorders: No Family Medical History No Pertinent Family Hx Physical Exam Vital Signs Vital Signs - First Documented 03/19/22 09:12 Temp 36.9 Pulse 77 Resp 18 B/P (MAP) 153/98 (116) Pulse Ox 99 Capillary Refill : Height, Weight, BMI Height: 5'5.00" Weight: 165lbs. 8.0oz. [id number]; 32.00 BMI Method:Actual General Appearance: WD/WN, no apparent distress HEENT: PERRL/EOMI, pharynx normal Neck: full range of motion, normal inspection Cardiovascular: normal peripheral pulses, regular rate, rhythm Respiratory: no respiratory distress, no accessory muscle use Hand: ecchymosis, soft tissue tenderness (Over third fourth fifth metacarpal), swelling (Right hand dorsum) Neurologic/Tendon: normal sensation, normal motor functions, responds to pain Neurologic/Psychiatric: alert, normal mood/affect Skin: ecchymosis (Right hand) Progress/Results/Core Measures Results/Orders My Orders Orders - BEAN RESENDIZ Hand, Right, 3 Views (03/19/22 09:35) Ibuprofen Tablet (Motrin Tablet) (03/19/22 09:45) Medications Given in ED Current Medications Medications Dose Ordered Sig/Blaise Route Start Time Stop Time Status Last Admin Dose Admin Ibuprofen 800 mg ONCE ONCE PO 03/19/22 09:45 03/19/22 09:46 DC 03/19/22 09:43 800 MG Vital Signs/I&O 03/19/22 09:12 Temp 36.9 Pulse 77 Resp 18 B/P (MAP) 153/98 (116) Pulse Ox 99 Blood Pressure Mean: 116 Progress Progress Note : Time: 09:38 Progress Note Plain film of the right hand. 800 mg of ibuprofen. Diagnostic Imaging Diagonstic Imaging: Xray Plain Films/CT/US/NM/MRI: hand (Right) Comments [facility], [place] NAME: SAHRAJAIRONCHUCK Garcia [facility] REC#: [id number] PT STATUS: REG ER : 1990 PHYSICIAN: BAEN ERSENDIZ MD ADMIT DATE: 03/19/22/ER Draft Date of Exam:03/19/22 HAND, RIGHT, 3 VIEWS INDICATION: Right hand pain and bruising COMPARISON: None. FINDINGS: 3 views of the right hand were obtained and show no fractures, dislocations, or other acute bony abnormalities. Joint spaces are well maintained throughout. The soft tissues appear unremarkable. No radiopaque foreign bodies are identified. IMPRESSION: Unremarkable radiographic exam of the right hand. Dictated on workstation # [id number] Dict: 03/19/2249 Trans: 03/19/2250 [facility] [id number] Interpreted by: GLADYS ISABEL MD Electronically signed by: Reviewed: Reviewed by Me Departure Impression Primary Impression: Contusion of right hand, initial encounter Disposition: HOME, SELF-CARE Condition: Stable Departure-Patient Inst. Decision time for Depature: 10:56 Referrals: NO,LOCAL PHYSICIAN (PCP) Primary Care Physician HERBERT JACOBO MD Patient Instructions: Hand Pain (DC) Add. Discharge Instructions: Apply ice 20 minutes on every 2 hours for the first 2 to 3 days to reduce swelling and pain. Tylenol and ibuprofen as necessary for pain. Wear the compression splint to help reduce pain and elevate your hand above the level of your heart while at rest. Minimize use your hand for the next 2 days. Swelling and pain should improve over the next week to 2 weeks. If you are still having significant pain after 7 to 10 days then make a follow- up appointment with your primary care doctor or Dr. Jacobo the orthopedic surgeon for reexamination. All discharge instructions reviewed with patient and/or family. Voiced understanding. Work/School Note: Work Release Form Date Seen in the Emergency Department: Mar 19, 2022 Return to Work: Mar 20, 2022 Restrictions: Need Release from Doctor Other Restrictions Listed Below: May wear splint until 04/02/2022. Minimize use of right hand until 03/21/2022 Copy Copies To 1: HERBERT JACOBO MD, TITUS J Mar 19, 2022 09:39
[2022-03-19] MEDS ORDERED: IBUPROFEN 800 MG (MOTRIN) TAB PO ONE (09:45)
--- NOTE | 2022-03-19 09:51 | Diagnostic Imaging Report ---
INDICATION: Right hand pain and bruising COMPARISON: None. FINDINGS: 3 views of the right hand were obtained and show no fractures, dislocations, or other acute bony abnormalities. Joint spaces are well maintained throughout. The soft tissues appear unremarkable. No radiopaque foreign bodies are identified. IMPRESSION: Unremarkable radiographic exam of the right hand. Dictated by: Dictated on workstation # [id number]
[2022-03-19 11:00] VITALS: BP 148/88
== END 2022-03-19 11:00 | disposition home or self-care (01) ==
LOC: EDUNIT# 09:06 → ER 09:07
DX: S60.221A Contusion of right hand, initial encounter (principal); F17.210 Nicotine dependence, cigarettes, uncomplicated; Z28.310 Unvaccinated for COVID-19; W18.30XA Fall on same level, unspecified, initial encounter; W22.8XXA Striking against or struck by other objects, initial encounter
CPT/HCPCS: 73130